=== PATIENT | male | born 1950 | race African-American/Black ===

== ENCOUNTER 2017-09-22 09:19 | Inpatient (IN) | payer MEDICARE ==
[2017-09-22 09:52] LABS: Mean Platelet Volume 6.3 fL (7.4-10.4); Red Blood Cell (RBC) Count 4.36 mill/uL (4.70-6.10); White Blood Cell (WBC) Count 16.3 thou/uL (4.8-10.8)
[2017-09-22] MEDS ORDERED: ISOVUE-370 76%-LOCM 1 ML ONE (10:07)
[2017-09-22] MEDS ORDERED: Azithromycin 500 MG VIAL ONE (10:10)
[2017-09-22 10:13] LABS: Neutrophil 85 % (42-75); Polychromasia SLIGHT = 2-3 cells (100X) (0-2/hpf)
[2017-09-22 10:16] LABS: ALT (SGPT) 28 U/L (8-55); AST (SGOT) 52 U/L (5-34); Alkaline Phosphatase 98 U/L (40-150); Anion Gap 18 mmol/L (10-20); BUN (Urea Nitrogen) 31 mg/dL (8.4-25.7); Bilirubin, Total 0.9 mg/dL (0.2-1.2); CK (CPK) 48 U/L (30-200); Calc. Creatinine Clearance 0 mL/min (70-130); Calcium 9.7 mg/dL (7.8-10.44); Carbon Dioxide 24 mmol/L (23-31); Chloride 92 mmol/L (98-107); Estimated GFR-MDRD 60; Globulin 5.4 g/dL (2.4-3.5); Protein, Total 8.5 g/dL (5.8-8.1); Troponin I Less than 0.010 ng/mL (< 0.028)
[2017-09-22 10:19] LABS: Bilirubin Negative (Negative); Blood, Urine Negative (Negative); Glucose, Urine (Dipstick) >=1000 mg/dL (Negative); Ketone, Urine Negative (Negative); Nitrite Negative (Negative); Protein, Urine (Dipstick) Negative (Neg-Trace)
--- NOTE | 2017-09-22 10:27 | RAD ---
AP CHEST: Indication: 67-year-old male with chest pain. FINDINGS: There is a lenticular shaped mass seen within the right mid chest which may reflect a loculated effus ion within the region of the right minor fissure. There is evidence of a loculated effusion seen over lying the lateral and posterolateral aspect of the right lower lobe. There are areas of airspace opac ity within the right lower lobe which may reflect atelectasis or pneumonia. The left lung demonstrates some emphysematous change but otherwise is clear. Heart size is normal neymar earing. No acute osseous abnormality is evident. IMPRESSION: 1. Right lung lenticular shaped mass may reflect loculated effusion or possibly a large lung mass les ion. Would recommend CT evaluation with IV contrast for additional characterization. 2. Moderate loculated right pleural effusion. 3. Emphysema. POS: [facility]
[2017-09-22] MEDS ORDERED: cefTRIAXone\\ROCEPHIN 2 GM, Admixture Fee 1 EACH in Sodium Chloride 0.9% 100 ML IVPB SCH (10:30)
[2017-09-22 10:40] LABS: Anion Gap 5 mmol/L (-14-95); T. Carbon Dioxide 33.8 mmol/L (1.0-85.0); pH (Venous) 7.388 (7.35-7.45); vO2 Saturation-calc 47.3 % (0.0-100.0)
[2017-09-22 11:06] LABS: Amphetamine Not Detected (NotDetected); Methadone Not Detected (NotDetected); Methamphetamine Not Detected (NotDetected)
--- NOTE | 2017-09-22 11:16 | CT ---
CT PULMONARY ANGIOGRAM WITH IV CONTRAST AND 3D POSTPROCESSING: Date: 09/22/17 HISTORY: 67-year-old male with dyspnea. FINDINGS: There is good contrast opacification of the pulmonary arterial vasculature without filling defects to suggest pulmonary embolism. The thoracic aorta is well opacified without aneurysm or dissection. The re are a few enlarged mediastinal lymph nodes, the largest measuring about 12.0 mm. There is a modera te sized right pleural effusion with associated loculations. Adjacent atelectatic changes are present . No pericardial effusion or left-sided pleural effusion is seen. There is a 7.0 mm perifissural nodu le along the right minor fissure. The left lung is clear. There are degenerative changes in the spine . IMPRESSION: 1. No CT evidence of pulmonary embolism. 2. Right pleural effusion. POS: [facility]
[2017-09-22] MEDS ORDERED: Insulin Regular 300 UNITS/3 ML VIAL ONE (11:35)
[2017-09-22] MEDS ORDERED: D5 1/2 NS w/20 mEq KCL 1,000 ML IV PRN (12:34)
[2017-09-22] MEDS ORDERED: Sodium Chloride 0.9% 1,000 ML IV PRN ×4 (12:34)
[2017-09-22] MEDS ORDERED: Dextrose 5 %-0.45 % NaCl 1,000 ML IV PRN (12:34)
[2017-09-22] MEDS ORDERED: Ondansetron ODT 4 MG TAB PO PRN (12:34)
[2017-09-22] MEDS ORDERED: Dextrose 50% Abboject 50 ML SYRINGE SLOW IVP PRN ×2 (12:34→13:09)
[2017-09-22] MEDS ORDERED: NS 0.9% w/ 20 MEQ KCL 1,000 ML IV PRN ×2 (12:34)
[2017-09-22] MEDS ORDERED: Dextrose 5% in Water 1,000 ML IV PRN ×2 (12:34→13:09)
[2017-09-22] MEDS ORDERED: CCU Electrolyte Replacement 1 EACH IVPB SCH (12:34)
[2017-09-22] MEDS ORDERED: Hydrochlorothiazide 25 MG TAB PO SCH (12:34)
[2017-09-22 13:15] LABS: Hemoglobin A1c 12.5 % (4.0-6.0)
[2017-09-22] MEDS ORDERED: CCU ELECTROLYTE REPLACEMENT PROTOCOL FS PRN (13:19)
[2017-09-22] MEDS ORDERED: Potassium Chloride 20 MEQ TAB PO PRN (13:19)
[2017-09-22] MEDS ORDERED: Magnesium Oxide 400 MG TAB PO PRN ×2 (13:19)
[2017-09-22] MEDS ORDERED: Potassium Chloride 40 MEQ in Sodium Chloride 0.9% 250 ML 250 ML IVPB PRN (13:19)
[2017-09-22] MEDS ORDERED: Potassium Phosphate 9 MMOL in Sodium Chloride 0.9% 100 ML IVPB PRN (13:19)
[2017-09-22] MEDS ORDERED: Potassium Chloride 40 MEQ in Premix Bag 1 BAG IVPB PRN (13:19)
[2017-09-22] MEDS ORDERED: Magnesium 2 GM/NS 0.9% 100 ML 2 GM in Premix Bag 1 BAG IVPB PRN (13:19)
[2017-09-22] MEDS ORDERED: Potassium Phosphate 15 MMOL in Sodium Chloride 0.9% 250 ML 250 ML IV PRN (13:19)
[2017-09-22] MEDS ORDERED: Potassium Phosphate 12 MMOL in Sodium Chloride 0.9% 250 ML 250 ML IV PRN (13:19)
[2017-09-22 13:30] LABS: Anion Gap 12 mmol/L (10-20); BUN (Urea Nitrogen) 27 mg/dL (8.4-25.7); Calc. Creatinine Clearance 0 mL/min (70-130); Calcium 8.9 mg/dL (7.8-10.44); Carbon Dioxide 26 mmol/L (23-31); Chloride 101 mmol/L (98-107); Estimated GFR-MDRD Greater than 90; Magnesium 2.5 mg/dL (1.6-2.6); Phosphorus 2.4 mg/dL (2.3-4.7)
--- NOTE | 2017-09-22 13:30 | CON ---
DATE OF CONSULTATION: 09/22/2017 CONSULTING PHYSICIAN: [facility] REASON FOR CONSULTATION: Pleural effusion. HISTORY OF PRESENT ILLNESS: Mr. Negron is a 67-year-old male who came to the emerge ncy room with a 1 week history of shortness of breath and right-sided chest pain. He has been having intermittent fever and chills. PAST MEDICAL HISTORY: 1. Diabetes mellitus. 2. Hypertension. PAST SURGICAL HISTORY: None. PSYCHIATRIC HISTORY: Negative. SOCIAL HISTORY: He quit smoking back in 2001. He drinks more than 5 drinks per day, usually beer. MEDICATIONS PRIOR TO ADMISSION: He was taking metformin and some other medication which he cannot gi ve me the name of right now. ALLERGIES: None listed. REVIEW OF SYSTEMS: Denies hematemesis, melena, hematochezia, hemoptysis, paresthesias, weakness or n umbness. PHYSICAL EXAMINATION: VITAL SIGNS: Temperature 98.9, pulse 100, blood pressure 177/100, O2 saturation 96%. GENERAL: He is awake, alert, oriented, in no distress. HEENT: Pupils react. Sclerae anicteric. Oropharynx clear. NECK: No adenopathy or JVD. LUNGS: Diminished breath sounds in the right base, left side clear. CARDIAC: S1, S2 regular, without murmur. ABDOMEN: Soft, nontender, nondistended. EXTREMITIES: No clubbing, cyanosis, or edema. LABORATORY DATA: White blood cell count 16, hematocrit 42, platelet count 346. Sodium 135, potassiu m 4.5, chloride 98, CO2 24, BUN 31, creatinine 1.4, glucose was initially 539 now it is 217. Chest x-ray shows a loculated right pleural effusion extending into the fissure. ASSESSMENT: Complex multiloculated pleural effusion, likely empyema. RECOMMENDATIONS: 1. He needs antibiotics with a broader spectrum than ceftriaxone - I would recommend Zosyn. 2. Car diothoracic consultation for decortication. 3. Treat diabetes with insulin. He does not seem to be in DKA and therefore I would not recommend a n insulin drip.
[2017-09-22 13:45] LABS: Troponin I Less than 0.010 ng/mL (< 0.028)
[2017-09-22] MEDS ORDERED: hydrALAZINE 20 MG/ML VIAL ONE (14:28)
[2017-09-22] MEDS: Sodium Chloride 0.9% 1,000 ML IV SCH ×2 (16:00→23:02)
[2017-09-22 16:02] VITALS: BMI 19.3
[2017-09-22 16:42] LABS: Anion Gap 16 mmol/L (10-20); BUN (Urea Nitrogen) 21 mg/dL (8.4-25.7); Calc. Creatinine Clearance 67 mL/min (70-130); Calcium 8.8 mg/dL (7.8-10.44); Carbon Dioxide 24 mmol/L (23-31); Chloride 101 mmol/L (98-107); Estimated GFR-MDRD Greater than 90
[2017-09-22] MEDS ORDERED: Ketorolac Tromethamine 30 MG/ML VIAL IVP SCH (17:00)
[2017-09-22] MEDS: Acetaminophen 325 MG TAB PO PRN (17:21)
[2017-09-22] MEDS: Piperacillin/Tazobactam 3.375 GM in Sodium Chloride 0.9% 100 ML IVPB SCH (18:16)
--- NOTE | 2017-09-22 20:51 | HP-2 ---
CODE STATUS: Full. PRIMARY CARE PHYSICIAN: Shy chan. ATTENDING PHYSICIAN: Dr. Morton. RESIDENT: Dr. Ponce. CHIEF COMPLAINT: Side pain. HISTORY OF PRESENT ILLNESS: This is a 67-year-old male who presents with a 1 week history of right side pain and nonproductive cough. He also notes shortness of breath, fevers and chills. He also notes an 8-9 month history of weight loss and night sweats. He states he has not been on any medications over 2 years. He has really lost any primary care provider role in the distant past as well. He really has no other complaints at this time. In the ER, he was given insulin, azithromycin and ceftriaxone. PAST MEDICAL HISTORY: Significant for; 1. Diabetes mellitus type 2. 2. Hypertension. 3. Hyperlipidemia. PAST SURGICAL HISTORY: None. ALLERGIES: None. MEDICATIONS: None. FAMILY HISTORY: Noncontributory. SOCIAL HISTORY: Tobacco; he does have a [id number] smoking history, he quit in 2001. He still abuses dipping tobacco currently. Alcohol; he used to drink at least 3 beers a day and he quit 4 days ago. Drugs; he did admit to cocaine use. REVIEW OF SYSTEMS: GENERAL: He admits to fevers, chills, weight loss and night sweats. EYES: He denied any vision changes or eye pain. ENT: Denies nasal congestion, rhinorrhea or sore throat. RESPIRATORY: He admits to cough. Denies any congestion. He does admit to shortness of breath. CARDIOVASCULAR: Denies chest pain, palpitations or edema. GASTROINTESTINAL: Denies nausea, vomiting, diarrhea, constipation, abdominal pain or GI bleeding, but he does admit to early satiety. GENITOURINARY: He denies incontinence or dysuria. SKIN: He denies rashes, lesions, jaundice or itching. MUSCULOSKELETAL: Denies pain, tenderness, stiffness, swelling or arthritis. NEUROLOGIC: Denies weakness, numbness, syncope or seizures. PSYCHIATRIC: Denies anxiety or depression. PHYSICAL EXAMINATION: VITAL SIGNS: Blood pressure is 162/92, pulse is 86, respirations are 20, temperature max is 98.9, pulse ox 95% on room air and current weight is 63.5 kilos. GENERAL: He is alert and oriented x4. He is appropriately interactive. EYES: PERRLA. Conjunctivae within normal limits. ENT: Tympanic membranes are pearly arnett without bulging or erythema. Nasal mucosa and oropharynx are within normal limits. He does have poor dentition on exam. NECK: Supple, without lymphadenopathy or thyromegaly. CARDIOVASCULAR: Regular rate and rhythm. No murmurs, no gallops. Radial and pedal pulses are equal bilaterally. RESPIRATORY: Normal effort, no retractions. He has decreased breath sounds on his right middle lobe. SKIN: Warm and dry. No cyanosis, no lesions. ABDOMEN: Soft and nontender to palpation. Bowel sounds are present x4. No mass or distention. EXTREMITIES: No clubbing, cyanosis or edema. MUSCULOSKELETAL: Structure, tone, muscle strength and range of motion are within normal limits. NEUROLOGIC: No focal neurologic deficits. Sensation within normal limits. Cranial nerves II-XII are grossly intact. GCS of 15. PSYCHIATRIC: Appropriate. LABORATORY DATA: He had a white blood cell count of 16.3, platelet count of 346 , hemoglobin 13.5, hematocrit 42.0, neutrophils 85%. He had a sodium of 129, corrected to 136. Potassium 4.5, chloride 92, bicarbonate 24, BUN 31, creatinine 1.42, glucose 500, calcium 9.7, total protein 8.5, bilirubin 3.1, AST 52, ALT 28, total bilirubin 0.9 and alkaline phosphatase 98. His beta hydroxybutyrate was 0.44. He had an ABG that showed a pH of 7.39. His urine drug screen was positive for cocaine. He had an anion gap of 20 and his urinalysis showed glucose of greater than 1000. IMAGING DATA: Chest x-ray showed right lung lenticular mass, loculated effusion with large lung mass and emphysema. His CT angiogram of the chest showed no PE, but did show a right pleural effusion, so we are working with him. ASSESSMENT AND PLAN: A 67-year-old male with: 1. Suspected pneumonia with possible empyema versus a mass. We are suspecting tuberculosis on this individual because of his history. We are going to order a Quantiferon Gold, put him on tuberculosis precautions. We are going to rule out cancer. Continue his antibiotics and get a pulmonary consult with Dr. Lyon. We appreciate his recommendations at this time. 2. Hyperglycemic hyperosmolar syndrome. We will give him the diabetic ketoacidosis protocol with insulin, make him n.p.o., get repeat BMPs and IV fluids and monitor status there. 3. Diabetes mellitus type 2, uncontrolled. We will give him insulin, Accu- Cheks and check hemoglobin A1c. 4. Acute kidney injury versus chronic kidney disease. We will repeat his BMP and give him IV fluids. 5. Hypertension is uncontrolled. We are going to initiate blood pressure control with HCTZ. 6. Hyperlipidemia. We are going to get a fasting lipid panel. 7. Weight loss, likely secondary to #1. We are going to check an HIV, RPR and a hepatitis panel. Disposition and length of hospital stay will be IMCU in 2 midnights. Symptomatic medication will be provided. History and physical exam as well as management has been discussed with Dr. Morton. Patient seen with Dr. Ponce. I agree with ferreira portions of H&P, Plan above. A written note is in the chart. 67 year old with lung infiltrate and large pleural effusion. Cancer, empyema, TB possibilities. We will ask pulmonary to see. He needs a tap. Rule out HIV. RALF Morton MD [facility]
[2017-09-22] MEDS ORDERED: FLU VACC TS2017-18 (>65YR) 0.5 ML SYRINGE IM ONE (21:00)
--- NOTE | 2017-09-22 23:50 | CON ---
DATE OF CONSULTATION: 09/22/2017 HISTORY OF PRESENT ILLNESS: This is a 67-year-old gentleman who relates a 2-week history of right-si ded chest pain and productive cough with no fever. He does admit to night sweats, but this has been going on for much longer. He has diabetes mellitus, does not take his medications as evidenced by sd s A1c of 12.1 and he states that he cannot afford the medicines. He was admitted after a CT scan [facility] showed the above findings and a white count of 16,000. He was seen by Dr. Lyon who is recommen ded intervention. PAST MEDICAL HISTORY: Otherwise includes hypertension, diabetes mellitus, polysubstance abuse, alcoh ol use included. PHYSICAL EXAMINATION: GENERAL: He is alert, disgruntled gentleman at this time because it is 7 p.m. and he states he has be en here since noon and has not had anything to eat. NECK: No carotid bruits. LUNGS: Clear to auscultation anteriorly. CARDIAC: Regular rate and rhythm. No murmurs. ABDOMEN: Soft, scaphoid, nontender. No aneurysm. EXTREMITIES: He has palpable femoral and pedal pulses bilaterally with no peripheral edema. Plan at this time is right thoracoscopy/thoracotomy for loculated empyema. Informed consent has been obtained.
[2017-09-23] MEDS: Piperacillin/Tazobactam 3.375 GM in Sodium Chloride 0.9% 100 ML IVPB SCH ×4 (00:16→22:26)
[2017-09-23] MEDS ORDERED: Dextrose 50% Abboject 50 ML SYRINGE SLOW IVP PRN (01:00)
[2017-09-23] MEDS ORDERED: HumaLOG 300 UNITS/3 ML VIAL SC SCH (01:00)
[2017-09-23] MEDS ORDERED: Dextrose 5% in Water 1,000 ML IV PRN (01:00)
[2017-09-23 05:47] LABS: #Eosinphils 0.1 thou/uL (0.0-0.7); #Lymphocytes 0.6 thou/uL (1.20-3.40); #Monocytes 1.1 thou/uL (0.11-0.59); #Neutrophils 9.4 thou/uL (1.40-6.50); %Basophils 0.1 % (0.0-1.0); %Eosinophils 0.9 % (0.0-10.0); %Lymphocytes 5.7 % (21.0-51.0); %Monocytes 9.7 % (0.0-10.0); Hematocrit 39.1 % (42.0-52.0); Mean Platelet Volume 6.1 fL (7.4-10.4); Red Blood Cell (RBC) Count 4.05 mill/uL (4.70-6.10); White Blood Cell (WBC) Count 11.2 thou/uL (4.8-10.8)
[2017-09-23 06:03] LABS: Anion Gap 7 mmol/L (10-20); BUN (Urea Nitrogen) 26 mg/dL (8.4-25.7); Calc. Creatinine Clearance 58 mL/min (70-130); Calcium 8.5 mg/dL (7.8-10.44); Carbon Dioxide 29 mmol/L (23-31); Chloride 102 mmol/L (98-107); Cholesterol 89 mg/dl (< 200 Desired); Estimated GFR-MDRD Greater than 90; LDL Cholesterol, Calculated 44 mg/dL
[2017-09-23] MEDS: hydrALAZINE 20 MG/ML VIAL SLOW IVP PRN (06:28)
--- NOTE | 2017-09-23 09:08 | PRG ---
DATE OF SERVICE: 09/23/2017 SUBJECTIVE: The patient is basically not wanting to talk about anything today. OBJECTIVE: VITAL SIGNS: On exam, his temperature is 99.8 after T-max of 101.8, pulse 99, blood pressure 190/83, O2 sat 96%. HEENT: Unremarkable. NECK: No JVD. LUNGS: Diminished breath sounds at right base, left side clear. CARDIAC: S1 and S2 regular. ABDOMEN: Soft. EXTREMITIES: No edema. LABORATORY DATA: White blood cell count 11.2, hematocrit 39.1, platelet count 299. Sodium 133, pota ssium 4.5, chloride 102, CO2 29, BUN 26, creatinine 0.9, glucose 195. ASSESSMENT: 1. Right-sided empyema. 2. Diabetes mellitus -- noncompliant with medications. PLAN: Thorascopic decortication today. Continue IV Zosyn.
--- NOTE | 2017-09-23 09:18 | PDOC.FM ---
- Subjective Subjective: CC: tired of people talking to me HPI: Patient was disgruntled that he continues to have staff re-evaluate him. Did not want to talk about current condition but is in agreement with plan for thoracoscopy. - Objective MAR Reviewed: Yes Vital Signs & Weight: Vital Signs (12 hours) Temp Pulse Resp BP BP Pulse Ox 09/23/17 08:00 101.1 F H 113 H 20 133/63 95 09/23/17 06:28 99 190/83 H 09/23/17 06:10 99.8 F H 99 20 190/83 H 190/83 H 96 09/23/17 00:00 98.1 F 84 18 144/80 H 144/80 H 97 Weight Weight 55.792 kg I&O: 09/22/17 09/23/17 09/24/17 06:59 06:59 06:59 Intake Total 2020 Output Total 500 Balance 1520 Result Diagrams: 09/23/17 05:05 09/23/17 05:05 <Arron Burgos W - Last Filed: 09/23/17 10:29> - Objective Vital Signs & Weight: Vital Signs (12 hours) Temp Pulse Resp BP BP Pulse Ox 09/23/17 08:00 101.1 F H 113 H 20 133/63 95 09/23/17 06:28 99 190/83 H 09/23/17 06:10 99.8 F H 99 20 190/83 H 190/83 H 96 09/23/17 00:00 98.1 F 84 18 144/80 H 144/80 H 97 Weight Weight 55.792 kg I&O: 09/22/17 09/23/17 09/24/17 06:59 06:59 06:59 Intake Total 2020 Output Total 500 Balance 1520 Result Diagrams: 09/23/17 05:05 09/23/17 05:05 <Salo Bowser - Last Filed: 09/23/17 10:59> Phys Exam - Physical Examination Constitutional: NAD HEENT: moist MMs Respiratory: no wheezing, clear to auscultation bilateral decreased breath sounds RLL Cardiovascular: RRR, no significant murmur Gastrointestinal: soft, non-tender Psychiatric: normal affect, A&O x 3 <Arron Burgos - Last Filed: 09/23/17 10:29> Dx/Plan (1) Empyema Code(s): J86.9 - PYOTHORAX WITHOUT FISTULA Status: Acute Plan: Zosyn day 2. CV surgery consulted. Plan for thoracoscpy today. - continue zosyn - Tramadol and morphine added for pain management (2) CAP (community acquired pneumonia) Code(s): J18.9 - PNEUMONIA, UNSPECIFIED ORGANISM Status: Acute QualifierTitle: Laterality: right Lung location: middle lobe of lung Qualified Code(s): J18.1 - Lobar pneumonia, unspecified organism Plan: Zosyn day 2 febrile overnight. continue abx. (3) HTN (hypertension) Code(s): I10 - ESSENTIAL (PRIMARY) HYPERTENSION Status: Acute QualifierTitle: Hypertension type: essential hypertension Qualified Code( s): I10 - Essential (primary) hypertension Plan: started amlodipine 5 mg and lisinopril 10 mg - will also start on ASA once cleared by CV surgery (4) Diabetes mellitus Code(s): E11.9 - TYPE 2 DIABETES MELLITUS WITHOUT COMPLICATIONS Status: Acute QualifierTitle: Diabetes mellitus type: type 2 Diabetes mellitus complication status: without complication Diabetes mellitus bike mechanic insulin use: without bike mechanic use Qualified Code(s): E11.9 - Type 2 diabetes mellitus without complications Plan: A1c 12.1%. - after procedure, will start oral medications, likely glyburide and then metformin at time of discharge - would likely need insulin given A1c but compliance will be a problem going forward. (5) Polysubstance abuse Code(s): F19.10 - OTHER PSYCHOACTIVE SUBSTANCE ABUSE, UNCOMPLICATED Status: Acute <Arron Burgos - Last Filed: 09/23/17 10:29> Attending Addendum - Attending Addendum I personally evaluated the patient and discussed the management with Dr. Burgos. I agree with the History, Examination, Assessment and Plan documented above with any addition or exceptions noted below. <Salo Bowser - Last Filed: 09/23/17 10:59>
[2017-09-23] MEDS ORDERED: Morphine 4 MG/ML VIAL SLOW IVP PRN (09:19)
[2017-09-23] MEDS ORDERED: traMADol HCl 50 MG TAB PO PRN (09:19)
[2017-09-23] MEDS: Acetaminophen 325 MG TAB PO PRN (09:36)
[2017-09-23] MEDS: Amlodipine 5 MG TAB PO SCH (13:36)
[2017-09-23] MEDS: Sodium Chloride 0.9% 1,000 ML IV SCH ×2 (13:37→22:26)
[2017-09-23] MEDS: Lisinopril 10 MG TAB PO SCH (13:37)
--- NOTE | 2017-09-23 14:39 | PQF ---
CLINICAL DOCUMENTATION IMPROVEMENT CLARIFICATION FORM: ICD-10 Updated PLEASE DO AN ADDENDUM TO THE PROGRESS NOTE WITH ANY DOCUMENTATION UPDATES OR ADDITIONS AND CARRY THROUGH TO DC SUMMARY. THANK YOU. Date: 09/23/17 ATTN: DR. BECKHAM Please exercise your independent, professional judgment in responding to the clarification form. Clinical indicators are provided on the bottom of this form for your review Please check appropriate box(s): [ x ] Protein Calorie Malnutrition: [ x ] Mild [ ] Moderate [ ] Severe [ ] Other Malnutrition (please specify) __ [ ] Underweight without malnutrition [ ] Cachexia [ ] Other diagnosis [ ] Unable to determine In addition, please specify: Present on Admission (POA): [ ] Yes [ ] No [ x ] Unable to determine CLINICAL INDICATORS - SIGNS / SYMPTOMS / LABS DIETARY NOTE 09/23: "THE PATIENT WAS TRIGGERED FOR WT LOSS AND POOR PO INTAKE." "KCAL AND PROTEIN NEEDS NOT MET" ALBUMIN 3.1 BMI 19.3 RISKS: H/O ALCOHOL AND DRUG USE POSSIBLE TB TREATMENT: DIETARY CONSULT RECOMMENDATIONS FOR NUTRITIONAL SUPPLEMENTS PER DIETARY NOTE 09/23 [employer] Geriatric Physical Therapist [employer] Winform Viewer (This form is maintained as a part of the permanent medical record) 2014 [employer]. All Rights Reserved ROBIN [email or web address] Office: [phone] [facility]
[2017-09-23] MEDS ORDERED: Fentanyl 250 MCG/5 ML VIAL ONE (14:58)
[2017-09-23] MEDS ORDERED: Lidocaine 1% PF 5 ML VIAL ONE (16:13)
[2017-09-23] MEDS ORDERED: Propofol 200 MG/20 ML VIAL ONE (16:13)
[2017-09-23] MEDS ORDERED: Dexamethasone 20 MG/5 ML VIAL ONE (16:13)
[2017-09-23] MEDS ORDERED: Ondansetron HCl/PF 4 MG/2 ML Vial ONE (16:13)
[2017-09-23] MEDS ORDERED: Labetalol HCl 100 MG/20 ML VIAL ONE (16:13)
[2017-09-23] MEDS ORDERED: PHENYLEPHRINE-NS 100 MCG/ML 10 ML SYRINGE ONE (16:13)
[2017-09-23] MEDS ORDERED: Glycopyrrolate 0.2 MG/ML 5 ML SYRINGE ONE (16:13)
[2017-09-23] MEDS ORDERED: Fentanyl 100 MCG/2 ML VIAL ONE (17:34)
--- NOTE | 2017-09-23 18:11 | OP ---
PREOPERATIVE DIAGNOSIS: Empyema, right chest. POSTOPERATIVE DIAGNOSIS: Empyema, right chest. PROCEDURE: Right thoracoscopy with total along decortication. SURGEON: Luigi Fenton M.D. OPERATIONS RESEARCH ANALYST: None. ANESTHESIA: General. ESTIMATED BLOOD LOSS: Minimal. FINDINGS: About 1000 mL of thick yellow fluid and necrotic debris. PROCEDURE IN DETAIL: After adequate anesthesia had been obtained with a double lumen tube and the pa tient was placed in the left lateral decubitus position, prepping and draping was carried out. A 10 mm trocar was then inserted after hemostat had been used into the chest and cultures were obtained. Scope was inserted and a second incision was made for instrumentation. Loculations were all broken d own between the diaphragm lung and fissure. After irrigation with about 5 liters of irrigation, effl uent had cleared. Chest tubes were then placed and the wounds were closed. The patient is to be james en to the recovery room.
[2017-09-23] MEDS ORDERED: HYDROcodone/Acetaminophen 5/325 mg Tablet PO PRN (22:32)
[2017-09-23] MEDS ORDERED: Sodium Chloride 0.9% 1,000 ML IV SCH (22:32)
[2017-09-23] MEDS ORDERED: Ondansetron HCl/PF 4 MG/2 ML Vial IVP PRN (22:32)
[2017-09-23] MEDS ORDERED: Morphine 10 MG/ML CARPUJECT SLOW IVP PRN (22:32)
--- NOTE | 2017-09-23 23:52 | RAD ---
FRONTAL RADIOGRAPH CHEST 09/23/17 COMPARISON: 09/22/17 HISTORY: Evaluate chest following thoracotomy. FINDINGS: Lobulated areas of pleural density identified on the prior examination are improved following thoraco hemanth. There are two chest tubes overlying the right hemithorax. There is hazy increased density in th e right lung base suggesting air space disease within right middle and right lower lobe. Left lung is clear. IMPRESSION: Improved pleural and parenchymal opacity within the right lung base. Two right sided chest tubes are present. Followup to resolution advised. POS: [facility]
[2017-09-24] MEDS: Piperacillin/Tazobactam 3.375 GM in Sodium Chloride 0.9% 100 ML IVPB SCH ×4 (00:21→18:52)
[2017-09-24] MEDS: Insulin Regular 300 UNITS/3 ML VIAL SC PRN ×5 (00:21→22:15)
[2017-09-24 06:07] LABS: #Lymphocytes 0.4 thou/uL (1.20-3.40); #Monocytes 0.8 thou/uL (0.11-0.59); #Neutrophils 7.2 thou/uL (1.40-6.50); %Basophils 0.1 % (0.0-1.0); %Lymphocytes 4.7 % (21.0-51.0); %Monocytes 9.6 % (0.0-10.0); Hematocrit 33.8 % (42.0-52.0); Mean Platelet Volume 6.3 fL (7.4-10.4); White Blood Cell (WBC) Count 8.4 thou/uL (4.8-10.8)
[2017-09-24 07:06] LABS: Anion Gap 12 mmol/L (10-20); BUN (Urea Nitrogen) 17 mg/dL (8.4-25.7); Calc. Creatinine Clearance 64 mL/min (70-130); Calcium 7.9 mg/dL (7.8-10.44); Carbon Dioxide 21 mmol/L (23-31); Chloride 103 mmol/L (98-107); Estimated GFR-MDRD Greater than 90
--- NOTE | 2017-09-24 07:49 | PDOC.FM ---
- Subjective Subjective: CC: feeling better HPI: States right chest pain feeling better. hungry and wants to eat. discussed starting insulin and he is agreeable. - Objective MAR Reviewed: Yes Vital Signs & Weight: Vital Signs (12 hours) Temp Pulse Resp BP Pulse Ox 09/24/17 07:13 98.8 F 88 16 130/61 100 09/24/17 04:00 98.6 F 86 18 106/65 100 09/24/17 00:00 99.5 F 102 H 18 114/53 L 100 Weight Admit Weight 55.792 kg Weight 55.792 kg I&O: 09/23/17 09/24/17 09/25/17 06:59 06:59 06:59 Intake Total 2019 1800 Output Total 500 300 925 Balance 1520 -300 875 Result Diagrams: 09/24/17 05:30 09/24/17 05:30 Radiology Reviewed by me: Yes (improved effusion. ) <Arron Burgos W - Last Filed: 09/24/17 07:47> - Objective Vital Signs & Weight: Vital Signs (12 hours) Temp Pulse Resp BP BP Pulse Ox 09/24/17 10:24 88 190/83 H 09/24/17 08:00 98.8 F 88 16 98 09/24/17 07:13 98.8 F 88 16 130/61 100 09/24/17 04:00 98.6 F 86 18 106/65 100 09/24/17 00:00 99.5 F 102 H 18 114/53 L 100 Weight Admit Weight 123 lb Weight 123 lb I&O: 09/23/17 09/24/17 09/25/17 06:59 06:59 06:59 Intake Total 2019 1800 Output Total 500 300 925 Balance 1520 -300 875 Result Diagrams: 09/24/17 05:30 09/24/17 05:30 <Tyler Morton - Last Filed: 09/24/17 11:10> Phys Exam - Physical Examination Constitutional: NAD HEENT: sclera anicteric, TM's clear Respiratory: no wheezing, clear to auscultation bilateral Cardiovascular: RRR, no significant murmur chest tube draining serosanganous fluid 400 mL in canister Gastrointestinal: soft, non-tender Neurological: non-focal, moves all 4 limbs Psychiatric: normal affect, A&O x 3 <Arron Burgos - Last Filed: 09/24/17 07:47> Dx/Plan (1) Empyema Code(s): J86.9 - PYOTHORAX WITHOUT FISTULA Status: Acute Plan: Zosyn day 3. CV surgery consulted. POD1 thoracospcy - continue zosyn - Tramadol and morphine added for pain management - management per CV surgery (2) CAP (community acquired pneumonia) Code(s): J18.9 - PNEUMONIA, UNSPECIFIED ORGANISM Status: Acute QualifierTitle: Laterality: right Lung location: middle lobe of lung Qualified Code(s): J18.1 - Lobar pneumonia, unspecified organism Plan: Zosyn day 3 afebrile overnight. continue abx. (3) HTN (hypertension) Code(s): I10 - ESSENTIAL (PRIMARY) HYPERTENSION Status: Acute QualifierTitle: Hypertension type: essential hypertension Qualified Code( s): I10 - Essential (primary) hypertension Plan: improved with amlodipine 5 mg and lisinopril 10 mg - will also start on ASA once cleared by CV surgery (4) Diabetes mellitus Code(s): E11.9 - TYPE 2 DIABETES MELLITUS WITHOUT COMPLICATIONS Status: Acute QualifierTitle: Diabetes mellitus type: type 2 Diabetes mellitus complication status: without complication Diabetes mellitus long term care social worker insulin use: without fdc use Qualified Code(s): E11.9 - Type 2 diabetes mellitus without complications Plan: A1c 12.1%. - required 24 of SSI overnight. discussed need for insulin therapy with patient. He is agreeable to starting insulin. will start levemir 15 units daily. - restart metformin at time of discharge. (5) Polysubstance abuse Code(s): F19.10 - OTHER PSYCHOACTIVE SUBSTANCE ABUSE, UNCOMPLICATED Status: Acute <Arron Burgos - Last Filed: 09/24/17 07:47> Attending Addendum - Attending Addendum I personally evaluated the patient and discussed the management with Dr. Burgos I agree with the History, Examination, Assessment and Plan documented above. <Tyler Morton - Last Filed: 09/24/17 11:10>
[2017-09-24] MEDS ORDERED: Insulin Detemir 100 UNITS/ML 15 UNITS in Pre-Filled Syringe 1 EACH SC SCH (09:00)
--- NOTE | 2017-09-24 09:37 | RAD ---
CHEST 1 VIEW: Date: 09/24/17 HISTORY: Status post thoracostomy. COMPARISON: 09/23/17. FINDINGS: Stable cardiac silhouette and stable aeration of left lung. Stable right-sided chest tubes. Persisten t opacification right hemithorax. No obvious large right-sided pneumothorax. IMPRESSION: No significant change. POS: [facility]
[2017-09-24] MEDS: Lisinopril 10 MG TAB PO SCH (10:24)
[2017-09-24] MEDS: Amlodipine 5 MG TAB PO SCH (10:24)
[2017-09-24] MEDS: HYDROcodone/Acetaminophen 5/325 mg Tablet PO PRN ×2 (10:29→19:34)
[2017-09-24 13:11] LABS: Hep C PCR-Quant 1550000 IU/mL (.)
--- NOTE | 2017-09-24 15:40 | EKG ---
Test Reason : Blood Pressure : / mmHG Vent. Rate : 101 BPM Atrial Rate : 101 BPM P-R Int : 126 ms QRS Dur : 078 ms QT Int : 334 ms P-R-T Axes : 074 070 067 degrees QTc Int : 433 ms Sinus tachycardia Moderate voltage criteria for LVH, may be normal variant Borderline ECG Confirmed by OMAR ASHLEY D.O. ([id number]), development editor CHRIS CAVANAUGH ([id number]) on 09/24/2017 3:40:13 PM Referred By: Confirmed By:OMAR ASHLEY D.O.
--- NOTE | 2017-09-24 22:00 | PRG ---
DATE OF SERVICE: 09/24/2017 SERVICE: Pulmonary Medicine. INTERVAL HISTORY: The patient is doing fantastic from a respiratory standpoint. He denies any current fevers, chills, nausea, vomiting or diarrhea. He is breathing comfortably. His pain is under better control. His IV is infiltrating which is causing him significant distress. I notified his nurse. Otherwise, there has been no interval change in his condition. PHYSICAL EXAMINATION: VITAL SIGNS: Afebrile, pulse 82, blood pressure 114/69, respirations 18, saturation 96% on room air. GENERAL: The patient is awake, alert, no apparent distress. LUNGS: Excellent air entry. There are crackles on the right, but no other adventitious sounds. No prolonged expiratory phase. Left lung is clear to auscultation. HEART: Normal rate, regular. ABDOMEN: Soft, nontender, nondistended, bowel sounds positive. MUSCULOSKELETAL: No cyanosis or clubbing. No pitting in the bilateral lower extremities. NEUROLOGIC: Grossly nonfocal. LABORATORY DATA: WBC 8.4, hemoglobin 10.9, platelets 280,000. Neutrophil count is stable at 85%. Basic metabolic profile is unremarkable with a bicarbonate of 21, which is gently down trending. Sodium 131. Blood sugars ranged from 331 to 112. Cocaine is positive. Beta hydroxybutyrate acid is really quite low. Plasma alcohol level is 10. Hepatitis C antibodies are positive. HIV 1 and 2 is non reactive. Blood cultures x2 and pleural fluid studies are negative to date. IMAGING: Chest x-ray demonstrates no significant interval change. There are 2 thoracostomy drains on the right with chronic midlung zone changes. The left lung is perfectly clean with no acute cardiopulmonary abnormality. ASSESSMENT: 1. Acute hypoxic respiratory failure. 2. Empyema on the right. 3. Type 2 diabetes mellitus, noncompliant with medications. PLAN: The patient will continue routine postop care. Once the chest tube starts putting out less fluid, this will likely be discontinued, certainly at the discretion of CT surgery. Continue antibiotic coverage. Once he clears his inflammatory profile, it would be reasonable to switch over to Augmentin and treat for a total duration per Dr. Lyon's recommendations. [facility]OSPITALMinnie
[2017-09-25] MEDS: Piperacillin/Tazobactam 3.375 GM in Sodium Chloride 0.9% 100 ML IVPB SCH ×4 (00:14→18:18)
[2017-09-25] MEDS: Insulin Regular 300 UNITS/3 ML VIAL SC PRN (06:29)
--- NOTE | 2017-09-25 07:13 | PDOC.FM ---
- Subjective Subjective: CC: "chest tube hurts" HPI: Stated he wants chest tube removed. Explained while he is still having output, needs chest tube to prevent infection from reoccurring. Discussed Hep C status and importance of outpatient follow up. - Objective MAR Reviewed: Yes Vital Signs & Weight: Vital Signs (12 hours) Temp Pulse Resp BP Pulse Ox 09/25/17 01:01 98.3 F 73 18 170/96 H 95 09/24/17 20:00 98.3 F 80 16 108/65 96 Weight Admit Weight 55.792 kg Weight 55.792 kg I&O: 09/24/17 09/25/17 09/26/17 06:59 06:59 06:59 Intake Total 2550 Output Total 300 1525 Balance -300 1025 Result Diagrams: 09/24/17 05:30 09/24/17 05:30 <Arron Burgos - Last Filed: 09/25/17 08:02> - Objective Vital Signs & Weight: Vital Signs (12 hours) Temp Pulse Resp BP Pulse Ox 09/25/17 07:45 98.5 F 87 18 148/85 H 96 09/25/17 04:00 98.3 F 83 17 135/74 97 09/25/17 01:01 98.3 F 73 18 170/96 H 95 Weight Admit Weight 123 lb Weight 123 lb I&O: 09/24/17 09/25/17 09/26/17 06:59 06:59 06:59 Intake Total 2550 Output Total 300 1615 Balance -300 935 Result Diagrams: 09/24/17 05:30 09/24/17 05:30 <Tyler Morton - Last Filed: 09/25/17 10:06> Phys Exam - Physical Examination Constitutional: NAD HEENT: moist MMs, sclera anicteric Respiratory: no wheezing, clear to auscultation bilateral chest tube drained 300 mL overnight. Cardiovascular: RRR, no significant murmur Musculoskeletal: no edema Neurological: non-focal, moves all 4 limbs Psychiatric: normal affect, A&O x 3 <Arron Burgos - Last Filed: 09/25/17 08:02> Dx/Plan (1) Empyema Code(s): J86.9 - PYOTHORAX WITHOUT FISTULA Status: Acute Plan: Zosyn day 4. CV surgery consulted. POD2 thoracospcy - continue zosyn - Tramadol and morphine added for pain management - management per CV surgery (2) CAP (community acquired pneumonia) Code(s): J18.9 - PNEUMONIA, UNSPECIFIED ORGANISM Status: Acute QualifierTitle: Laterality: right Lung location: middle lobe of lung Qualified Code(s): J18.1 - Lobar pneumonia, unspecified organism Plan: Zosyn day 4 afebrile overnight. continue abx. (3) HTN (hypertension) Code(s): I10 - ESSENTIAL (PRIMARY) HYPERTENSION Status: Acute QualifierTitle: Hypertension type: essential hypertension Qualified Code( s): I10 - Essential (primary) hypertension Plan: improved with amlodipine 5 mg and lisinopril 10 mg but remains labile. - will also start on ASA once cleared by CV surgery - will monitor overnight and adjust as needed. consider increasing lisinopril to 20 mg daily. (4) Diabetes mellitus Code(s): E11.9 - TYPE 2 DIABETES MELLITUS WITHOUT COMPLICATIONS Status: Acute QualifierTitle: Diabetes mellitus type: type 2 Diabetes mellitus complication status: without complication Diabetes mellitus jail insulin use: without jail use Qualified Code(s): E11.9 - Type 2 diabetes mellitus without complications Plan: A1c 12.1%. - Increase Levemir to 25 U daily. continue mild SSI. - restart metformin at time of discharge. (5) Hepatitis C virus infection Code(s): B19.20 - UNSPECIFIED VIRAL HEPATITIS C WITHOUT HEPATIC COMA Status: Acute QualifierTitle: Viral hepatitis chronicity: chronic Hepatic coma status: without hepatic coma Qualified Code(s): B18.2 - Chronic viral hepatitis C Plan: viral load positive. will need outpatient evaluation and treatment. (6) Polysubstance abuse Code(s): F19.10 - OTHER PSYCHOACTIVE SUBSTANCE ABUSE, UNCOMPLICATED Status: Acute <Arron Burgos - Last Filed: 09/25/17 08:02> Attending Addendum - Attending Addendum I personally evaluated the patient and discussed the management with Dr. Burgos I agree with the History, Examination, Assessment and Plan documented above with any addition or exceptions noted below. Patient is improving. Chest tube is still draining and cultures are pending. Continue current antibiotics for now awaiting culture. <Selene,Tyler E - Last Filed: 09/25/17 10:06>
[2017-09-25] MEDS: Insulin Detemir 100 UNITS/ML 25 UNITS in Pre-Filled Syringe 1 EACH SC SCH (10:04)
[2017-09-25] MEDS: Lisinopril 10 MG TAB PO SCH (10:05)
[2017-09-25] MEDS: Amlodipine 5 MG TAB PO SCH (10:05)
[2017-09-25] MEDS: Acetaminophen 325 MG TAB PO PRN (15:34)
--- NOTE | 2017-09-25 20:05 | PRG ---
DATE OF SERVICE: 09/25/2017 SERVICE: Pulmonary Medicine. INTERVAL HISTORY: The patient is doing fine from a respiratory standpoint. He is breathing comforta domenica. He denies any current fevers, chills, nausea or vomiting. He has a right-sided thoracostomy dr betancourt in place. Otherwise, there has been no interval change to his condition. PHYSICAL EXAMINATION: VITAL SIGNS: T-max 101.9, pulse 95, blood pressure 143/78, respirations 18, saturation 96% on room a ir. GENERAL: Patient is awake, alert, in no apparent distress. LUNGS: Decent air entry. There are some rhonchi and crackles on the right. No prolonged expiratory phase. HEART: Normal rate, regular. ABDOMEN: Soft, nontender, nondistended. Bowel sounds positive. MUSCULOSKELETAL: No cyanosis or clubbing. No pitting in the bilateral lower extremities. NEUROLOGIC: Grossly nonfocal. LABORATORY DATA: WBC 8.4, hemoglobin 10.9, platelets 280,000. Neutrophil count is stable at 85%. B lood sugars ranged from 88 to 224. All culture results are negative to date. ASSESSMENT: 1. Acute hypoxic respiratory failure, resolved. 2. Empyema on the right. 3. Type 2 diabetes mellitus, noncompliant with medications. PLAN: We will continue our routine postoperative care. If he fevers again, repeat culture will be c onsidered. The chest tube's output is getting a little clear. Once the output decreases, we will li matthew remove the chest tube. Dr. Lyon will resume care in the morning.
[2017-09-26] MEDS: Piperacillin/Tazobactam 3.375 GM in Sodium Chloride 0.9% 100 ML IVPB SCH ×5 (00:01→23:31)
[2017-09-26] MEDS: hydrALAZINE 20 MG/ML VIAL SLOW IVP PRN ×2 (00:12→20:31)
[2017-09-26 05:51] LABS: #Eosinphils 0.1 thou/uL (0.0-0.7); #Lymphocytes 0.8 thou/uL (1.20-3.40); #Monocytes 0.9 thou/uL (0.11-0.59); #Neutrophils 7.5 thou/uL (1.40-6.50); %Basophils 0.3 % (0.0-1.0); %Eosinophils 1.1 % (0.0-10.0); %Lymphocytes 8.6 % (21.0-51.0); %Monocytes 9.6 % (0.0-10.0); Hematocrit 36.2 % (42.0-52.0); Mean Platelet Volume 6.1 fL (7.4-10.4); Red Blood Cell (RBC) Count 3.79 mill/uL (4.70-6.10); White Blood Cell (WBC) Count 9.3 thou/uL (4.8-10.8)
[2017-09-26 06:09] LABS: Anion Gap 9 mmol/L (10-20); BUN (Urea Nitrogen) 10 mg/dL (8.4-25.7); Calc. Creatinine Clearance 75 mL/min (70-130); Calcium 8.1 mg/dL (7.8-10.44); Carbon Dioxide 28 mmol/L (23-31); Chloride 100 mmol/L (98-107); Estimated GFR-MDRD Greater than 90
[2017-09-26] MEDS: Amlodipine 5 MG TAB PO SCH (08:23)
[2017-09-26] MEDS: Insulin Detemir 100 UNITS/ML 25 UNITS in Pre-Filled Syringe 1 EACH SC SCH (08:23)
[2017-09-26] MEDS: Acetaminophen 325 MG TAB PO PRN ×2 (08:29→20:32)
--- NOTE | 2017-09-26 08:33 | PRG ---
DATE OF SERVICE: 09/26/2017 SUBJECTIVE: He feels better. His chest tube was removed this morning. PHYSICAL EXAMINATION: VITAL SIGNS: On exam, his temperature is 99.6 with a T-max of 101.9, pulse 105, respirations 15, O2 saturation 97%, and blood pressure 173/84. HEENT: Unremarkable. NECK: No JVD. CHEST: Fairly clear anteriorly. CARDIAC: S1 and S2 regular. ABDOMEN: Soft. EXTREMITIES: No edema. LABORATORY DATA: White blood cell count 9.3, hematocrit 36.2, platelet count 379. Sodium 133, potas sium 3.8, chloride 100, CO2 28, BUN 10, creatinine 0.7, and glucose 121. ASSESSMENT: 1. Right-sided empyema with sterile cultures to date. 2. Persistent fever. RECOMMENDATIONS: 1. Continue IV antibiotics. 2. Increase activity as tolerated. 3. Hopefully home in the next day or two if he does okay.
--- NOTE | 2017-09-26 09:17 | PDOC.FM ---
- Subjective Subjective: CC: "I want to go home" HPI: Patient states he does not understand why he is still here in the hospital. Explained the severity of his illness and he expressed understanding. States he is happy the chest tube was removed and has been feeling better. - Objective MAR Reviewed: Yes Vital Signs & Weight: Vital Signs (12 hours) Temp Pulse Resp BP BP Pulse Ox 09/26/17 08:23 105 H 09/26/17 08:00 99.0 F 107 H 16 170/84 H 96 09/26/17 04:15 99.6 F 105 H 15 173/84 H 97 09/26/17 00:12 99 199/94 H Weight Admit Weight 55.792 kg Weight 55.792 kg I&O: 09/25/17 09/26/17 09/27/17 06:59 06:59 06:59 Intake Total 2550 2360 Output Total 1615 2120 Balance 935 240 Result Diagrams: 09/26/17 04:59 09/26/17 04:59 <Arron Burgos - Last Filed: 09/26/17 09:16> - Objective Vital Signs & Weight: Vital Signs (12 hours) Temp Pulse Resp BP BP Pulse Ox 09/26/17 11:49 98.9 F 94 14 127/80 96 09/26/17 10:27 199/94 H 09/26/17 08:23 105 H 09/26/17 08:00 98.9 F 94 14 170/84 H 96 09/26/17 04:15 99.6 F 105 H 15 173/84 H 97 Weight Admit Weight 55.792 kg Weight 55.792 kg I&O: 09/25/17 09/26/17 09/27/17 06:59 06:59 06:59 Intake Total 2550 2360 Output Total 1615 2120 Balance 935 240 Result Diagrams: 09/26/17 04:59 09/26/17 04:59 <Mercedes Jackson - Last Filed: 09/26/17 15:26> Phys Exam - Physical Examination Constitutional: NAD HEENT: moist MMs, sclera anicteric Neck: no nodes, no JVD Respiratory: no wheezing, clear to auscultation bilateral Cardiovascular: RRR, no significant murmur Gastrointestinal: soft, non-tender Neurological: non-focal, moves all 4 limbs Psychiatric: normal affect, A&O x 3 Skin: no rash, normal turgor <Arron Burgos - Last Filed: 09/26/17 09:16> Dx/Plan (1) Empyema Code(s): J86.9 - PYOTHORAX WITHOUT FISTULA Status: Acute Plan: Zosyn day 5. CV surgery consulted. POD 3 thoracospcy - continue zosyn - [place] for pain - management per CV surgery - repeat CXR tomorrow (2) CAP (community acquired pneumonia) Code(s): J18.9 - PNEUMONIA, UNSPECIFIED ORGANISM Status: Acute QualifierTitle: Laterality: right Lung location: middle lobe of lung Qualified Code(s): J18.1 - Lobar pneumonia, unspecified organism Plan: Zosyn day 5 Fever up to 101.9 F overnight. continue abx. (3) HTN (hypertension) Code(s): I10 - ESSENTIAL (PRIMARY) HYPERTENSION Status: Acute QualifierTitle: Hypertension type: essential hypertension Qualified Code( s): I10 - Essential (primary) hypertension Plan: elevated overnight. - will also start on ASA once cleared by CV surgery -Increased lisinopril to 20 mg daily . (4) Diabetes mellitus Code(s): E11.9 - TYPE 2 DIABETES MELLITUS WITHOUT COMPLICATIONS Status: Acute QualifierTitle: Diabetes mellitus type: type 2 Diabetes mellitus complication status: without complication Diabetes mellitus custodial insulin use: without custodial use Qualified Code(s): E11.9 - Type 2 diabetes mellitus without complications Plan: A1c 12.1%. - improved with increase in levemir . continue mild SSI. - restart metformin at time of discharge. (5) Hepatitis C virus infection Code(s): B19.20 - UNSPECIFIED VIRAL HEPATITIS C WITHOUT HEPATIC COMA Status: Acute QualifierTitle: Viral hepatitis chronicity: chronic Hepatic coma status: without hepatic coma Qualified Code(s): B18.2 - Chronic viral hepatitis C Plan: viral load positive. will need outpatient evaluation and treatment. (6) Polysubstance abuse Code(s): F19.10 - OTHER PSYCHOACTIVE SUBSTANCE ABUSE, UNCOMPLICATED Status: Acute <Arron Burgos - Last Filed: 09/26/17 09:16> Attending Addendum - Attending Addendum I personally evaluated the patient and discussed the management with Dr. Burgos I agree with the History, Examination, Assessment and Plan documented above with any addition or exceptions noted below- Patient denies any complaints. Wants to go home. Has been ambulating in the halls. Tm 101.9 VSS A/P: 1) empyema s/p decortication- continua current antibiotics, 2) HTN- adjust meds as BP still running high, 3) DM- good control with present regimen; continue current insulin. <Mercedes Jackson - Last Filed: 09/26/17 15:26>
[2017-09-26] MEDS: Lisinopril 20 MG TAB PO SCH (10:27)
[2017-09-27] MEDS: Piperacillin/Tazobactam 3.375 GM in Sodium Chloride 0.9% 100 ML IVPB SCH ×3 (06:29→18:01)
--- NOTE | 2017-09-27 06:54 | PDOC.FM ---
- Subjective Subjective: CC: Resting well. HPI: Patient states he is feeling better and still ready to go home. No concerns over night. - Objective MAR Reviewed: Yes Vital Signs & Weight: Vital Signs (12 hours) Temp Pulse Resp BP BP Pulse Ox 09/27/17 04:00 97.4 F L 103 H 18 109/95 H 95 09/26/17 23:46 98.2 F 97 16 132/69 97 09/26/17 20:31 109 H 182/83 H 09/26/17 20:25 100.7 F H 109 H 18 96 09/26/17 20:00 100.7 F H 109 H 16 182/83 H 96 Weight Admit Weight 55.792 kg Weight 55.792 kg I&O: 09/25/17 09/26/17 09/27/17 06:59 06:59 06:59 Intake Total 2550 2360 Output Total 1615 2120 Balance 935 240 Result Diagrams: 09/26/17 04:59 09/26/17 04:59 EKG Reviewed by me: Yes (SR rate 96. possible LVH. normal QTc interval. ) <Arron Burgos - Last Filed: 09/27/17 11:09> - Objective Vital Signs & Weight: Vital Signs (12 hours) Temp Pulse Resp BP BP Pulse Ox 09/27/17 16:00 100.9 F H 117 H 18 152/72 H 95 09/27/17 10:14 99 182/83 H 09/27/17 08:00 98.2 F 117 H 18 171/78 H 98 09/27/17 07:15 99.6 F 99 16 171/78 H 98 Weight Admit Weight 55.792 kg Weight 55.792 kg I&O: 09/26/17 09/27/17 09/28/17 06:59 06:59 06:59 Intake Total 2360 Output Total 2120 Balance 240 Result Diagrams: 09/26/17 04:59 09/26/17 04:59 <Mercedes Jackson - Last Filed: 09/27/17 17:44> Phys Exam - Physical Examination Constitutional: NAD HEENT: moist MMs, sclera anicteric Respiratory: no wheezing, clear to auscultation bilateral Cardiovascular: RRR, no significant murmur Gastrointestinal: soft, non-tender Neurological: non-focal, moves all 4 limbs Psychiatric: normal affect, A&O x 3 <Arron Burgos W - Last Filed: 09/27/17 11:09> Dx/Plan (1) Empyema Code(s): J86.9 - PYOTHORAX WITHOUT FISTULA Status: Acute Plan: Zosyn day 5. CV surgery consulted. POD 4 thoracospcy. wound culture positive for strep anginosus. Sensitivities pending. - will discuss antibiotic coverage with Pulmonolgy. - [place] for pain - CV surgery has cleared for d/c (2) CAP (community acquired pneumonia) Code(s): J18.9 - PNEUMONIA, UNSPECIFIED ORGANISM Status: Acute QualifierTitle: Laterality: right Lung location: middle lobe of lung Qualified Code(s): J18.1 - Lobar pneumonia, unspecified organism Plan: Zosyn day 5 Fever up to 100.7 F overnight. has been trending down and likely due to size of infection - repeat blood cultures. (3) HTN (hypertension) Code(s): I10 - ESSENTIAL (PRIMARY) HYPERTENSION Status: Acute QualifierTitle: Hypertension type: essential hypertension Qualified Code( s): I10 - Essential (primary) hypertension Plan: elevated overnight. still requiring PRNs - will also start on ASA once cleared by CV surgery - Increased amlodipine to 10mg daily (4) Diabetes mellitus Code(s): E11.9 - TYPE 2 DIABETES MELLITUS WITHOUT COMPLICATIONS Status: Acute QualifierTitle: Diabetes mellitus type: type 2 Diabetes mellitus complication status: without complication Diabetes mellitus terminal make up operator insulin use: without care home use Qualified Code(s): E11.9 - Type 2 diabetes mellitus without complications Plan: A1c 12.1%. - improved with increase in levemir . continue mild SSI. - restart metformin at time of discharge. (5) Hepatitis C virus infection Code(s): B19.20 - UNSPECIFIED VIRAL HEPATITIS C WITHOUT HEPATIC COMA Status: Acute QualifierTitle: Viral hepatitis chronicity: chronic Hepatic coma status: without hepatic coma Qualified Code(s): B18.2 - Chronic viral hepatitis C Plan: viral load positive. will need outpatient evaluation and treatment. (6) Polysubstance abuse Code(s): F19.10 - OTHER PSYCHOACTIVE SUBSTANCE ABUSE, UNCOMPLICATED Status: Acute (7) Tachycardia with heart rate 100-120 beats per minute Code(s): R00.0 - TACHYCARDIA, UNSPECIFIED Status: Acute Plan: etiology unknown at this time. possibly 2/2 pain vs infection. EKG shows normal sinus rhythm. - repeat blood cultures <Arron Burgos - Last Filed: 09/27/17 11:09> Attending Addendum - Attending Addendum I personally evaluated the patient and discussed the management with Dr. Burgos I agree with the History, Examination, Assessment and Plan documented above with any addition or exceptions noted below- [place] feeling well; wants to go home. Ambulating in [place]. Tm100.7 VSS. A/P: 1) Empyema- continue IV abx; fever idowntrending; continue to monitor. Possible discharge soon. 2) Dm- well controlled on current regimen, 3) HTN- adjust meds as indicated. <Mercedes Jackson - Last Filed: 09/27/17 17:44>
--- NOTE | 2017-09-27 07:44 | RAD ---
AP CHEST: Indication: Status post thoracotomy. Comparison: 09-24-17 FINDINGS/IMPRESSION: Right sided thoracotomy tube has been removed. Complex pleural collection within right hemithorax and right major fissure are unchanged. Chronic lung changes are similar. No pneumothorax is evident. Sub cutaneous emphysema overlying right chest wall is similar. POS: [facility]
--- NOTE | 2017-09-27 08:13 | PRG ---
DATE OF SERVICE: 09/27/2017 SUBJECTIVE: The patient says he feels okay. OBJECTIVE: VITAL SIGNS: His T-max yesterday is 100.7, currently 97.4, blood pressure 109/95, O2 sat 95%. HEENT: Unremarkable. NECK: No JVD. CHEST: Clear anteriorly. CARDIOVASCULAR: S1 and S2 regular. ABDOMEN: Soft. EXTREMITIES: No edema. IMAGING: His pleural fluid cultures showed Streptococcus anginosus. No sensitivities were done on t hat. LABORATORY DATA: No new labs were obtained today. ASSESSMENT: 1. Empyema. 2. Status post decortication. PLAN: Continue IV antibiotics. It will take quite some time for his x-ray to come back to normal.
[2017-09-27] MEDS: Amlodipine 10 MG TAB PO SCH (10:14)
[2017-09-27] MEDS: Insulin Detemir 100 UNITS/ML 25 UNITS in Pre-Filled Syringe 1 EACH SC SCH (10:14)
[2017-09-27] MEDS: Lisinopril 20 MG TAB PO SCH ×2 (10:14→21:56)
[2017-09-27] MEDS: HumaLOG 300 UNITS/3 ML VIAL SC PRN (14:24)
[2017-09-28] MEDS: Piperacillin/Tazobactam 3.375 GM in Sodium Chloride 0.9% 100 ML IVPB SCH ×4 (00:10→17:58)
[2017-09-28] MEDS: Acetaminophen 325 MG TAB PO PRN (00:19)
[2017-09-28 07:28] LABS: #Eosinphils 0.2 thou/uL (0.0-0.7); #Lymphocytes 0.8 thou/uL (1.20-3.40); #Monocytes 0.8 thou/uL (0.11-0.59); #Neutrophils 5.2 thou/uL (1.40-6.50); %Basophils 0.5 % (0.0-1.0); %Lymphocytes 11.6 % (21.0-51.0); %Monocytes 10.9 % (0.0-10.0); Hematocrit 32.2 % (42.0-52.0); Mean Platelet Volume 5.5 fL (7.4-10.4); Red Blood Cell (RBC) Count 3.33 mill/uL (4.70-6.10); White Blood Cell (WBC) Count 7.1 thou/uL (4.8-10.8)
[2017-09-28 07:50] LABS: Anion Gap 9 mmol/L (10-20); BUN (Urea Nitrogen) 6 mg/dL (8.4-25.7); Calc. Creatinine Clearance 67 mL/min (70-130); Carbon Dioxide 28 mmol/L (23-31); Chloride 102 mmol/L (98-107); Estimated GFR-MDRD Greater than 90
[2017-09-28] MEDS ORDERED: metFORMIN 500 MG TAB PO SCH ×2 (09:00→09:30)
[2017-09-28] MEDS ORDERED: Chlorthalidone 25 MG TAB PO SCH (09:00)
--- NOTE | 2017-09-28 09:00 | PDOC.FM ---
- Subjective Subjective: CC: "I can't sleep and need to sleep." HPI: Patient states he has had difficulty sleeping since admission. Also informed him Dr. Lyon recommends IV abx until afebrile. He expressed understanding. - Objective MAR Reviewed: Yes Vital Signs & Weight: Vital Signs (12 hours) Temp Pulse Resp BP BP Pulse Ox 09/28/17 08:00 98.8 F 106 H 20 145/77 H 95 09/28/17 04:29 98.5 F 83 17 144/70 H 97 09/28/17 00:13 100.3 F H 100 17 165/76 H 97 09/27/17 21:56 186/81 H 09/27/17 21:06 100.3 F H 112 H 17 186/81 H 95 Weight Admit Weight 55.792 kg Weight 55.792 kg Result Diagrams: 09/28/17 07:19 09/28/17 07:19 <Arron Burgos - Last Filed: 09/28/17 10:17> - Objective Vital Signs & Weight: Vital Signs (12 hours) Temp Pulse Resp BP BP Pulse Ox 09/28/17 09:02 106 H 09/28/17 09:01 186/81 H 09/28/17 08:00 98.8 F 106 H 20 145/77 H 95 09/28/17 04:29 98.5 F 83 17 144/70 H 97 09/28/17 00:13 100.3 F H 100 17 165/76 H 97 Weight Admit Weight 55.792 kg Weight 55.792 kg Result Diagrams: 09/28/17 07:19 09/28/17 07:19 <Mercedes Jackson - Last Filed: 09/28/17 11:09> Phys Exam - Physical Examination Constitutional: NAD HEENT: moist MMs, sclera anicteric Neck: no nodes, no JVD Respiratory: no wheezing, clear to auscultation bilateral Cardiovascular: RRR, no significant murmur Gastrointestinal: soft, non-tender Musculoskeletal: no edema Neurological: non-focal, moves all 4 limbs Psychiatric: normal affect, A&O x 3 <Arron Burgos - Last Filed: 09/28/17 10:17> Dx/Plan (1) Empyema Code(s): J86.9 - PYOTHORAX WITHOUT FISTULA Status: Acute Plan: Zosyn day 6. CV surgery consulted. POD 4 thoracospcy. wound culture positive for strep anginosus. Sensitivities not sent. - Pulm recommends IV Abx until afebrile. small fever overnight. monitor additional day in hospital. - [place] for pain - CV surgery has cleared for d/c (2) CAP (community acquired pneumonia) Code(s): J18.9 - PNEUMONIA, UNSPECIFIED ORGANISM Status: Acute QualifierTitle: Laterality: right Lung location: middle lobe of lung Qualified Code(s): J18.1 - Lobar pneumonia, unspecified organism Plan: Zosyn day 6 Fever up to 100.9 F overnight. - monitor additional day. (3) HTN (hypertension) Code(s): I10 - ESSENTIAL (PRIMARY) HYPERTENSION Status: Acute QualifierTitle: Hypertension type: essential hypertension Qualified Code( s): I10 - Essential (primary) hypertension Plan: elevated overnight. 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 - improved with increase in levemir . continue mild SSI. - started metforming 500 mg BID. (5) Hepatitis C virus infection Code(s): B19.20 - UNSPECIFIED VIRAL HEPATITIS C WITHOUT HEPATIC COMA Status: Acute QualifierTitle: Viral hepatitis chronicity: chronic Hepatic coma status: without hepatic coma Qualified Code(s): B18.2 - Chronic viral hepatitis C Plan: viral load positive. will need outpatient evaluation and treatment. (6) Polysubstance abuse Code(s): F19.10 - OTHER PSYCHOACTIVE SUBSTANCE ABUSE, UNCOMPLICATED Status: Acute (7) Tachycardia with heart rate 100-120 beats per minute Code(s): R00.0 - TACHYCARDIA, UNSPECIFIED Status: Acute Plan: etiology unknown at this time. possibly 2/2 pain vs infection. EKG shows normal sinus rhythm. <Arron Burgos - Last Filed: 09/28/17 10:17> Attending Addendum - Attending Addendum I personally evaluated the patient and discussed the management with Dr. Burgos I agree with the History, Examination, Assessment and Plan documented above with any addition or exceptions noted below- Patient without complaints. Ambulating in [place]. Tm 100.9 VSS A/P: 1) Empyema- continue IV antibiotics until afebrile 24 hours, 2) DM- improved; continue to adjust insulin as needed; started on metformin, 3) HTN- improved; chlorthalidone added. <Mercedes Jackson - Last Filed: 09/28/17 11:09>
[2017-09-28] MEDS: Lisinopril 20 MG TAB PO SCH ×2 (09:01→21:24)
[2017-09-28] MEDS: Amlodipine 10 MG TAB PO SCH (09:02)
[2017-09-28] MEDS: Insulin Detemir 100 UNITS/ML 25 UNITS in Pre-Filled Syringe 1 EACH SC SCH (09:02)
[2017-09-28] MEDS ORDERED: Melatonin 3 MG TAB PO PRN (09:07)
[2017-09-28] MEDS ORDERED: Melatonin 3 MG TAB PO SCH (09:30)
--- NOTE | 2017-09-28 10:29 | PRG ---
DATE OF SERVICE: 09/28/2017 SUBJECTIVE: He is doing well, had no acute complaints. PHYSICAL EXAMINATION: VITAL SIGNS: His T-max was 100.9 yesterday, currently 98.8; pulse 106; respirations 20; O2 sat 95%. HEENT: Unremarkable. NECK: No JVD. CHEST: Clear. CARDIAC: S1 and S2 regular. ABDOMEN: Soft. EXTREMITIES: No edema. ASSESSMENT: 1. Empyema. 2. Pneumonia. PLAN: Continue antibiotics - we will not change to oral antibiotics until he defervesce. He is prob ably going to need up to 21 days of antibiotics. He can change to Augmentin once he is off the IV an tibiotics. We can move towards rehab or discharge soon.
[2017-09-28] MEDS: metFORMIN 500 MG TAB PO SCH (17:58)
[2017-09-29] MEDS: Piperacillin/Tazobactam 3.375 GM in Sodium Chloride 0.9% 100 ML IVPB SCH ×4 (00:29→18:19)
[2017-09-29] MEDS: Chlorthalidone 25 MG TAB PO SCH (08:54)
[2017-09-29] MEDS: Insulin Detemir 100 UNITS/ML 25 UNITS in Pre-Filled Syringe 1 EACH SC SCH (08:56)
[2017-09-29] MEDS: Amlodipine 10 MG TAB PO SCH (08:56)
[2017-09-29] MEDS: metFORMIN 500 MG TAB PO SCH ×2 (08:56→17:18)
[2017-09-29] MEDS: HumaLOG 300 UNITS/3 ML VIAL SC PRN ×3 (08:57→22:00)
--- NOTE | 2017-09-29 09:01 | PRG ---
DATE OF SERVICE: 09/29/2017 Mr. Jung is upset that he has the hiccups. He wants to go home. PHYSICAL EXAMINATION: VITAL SIGNS: Temperature is 100.0, pulse 86, respirations 15, O2 sat 97%, blood pressure 140/79. HEENT: Unremarkable. NECK: No JVD. LUNGS: Diminished breath sounds right base. CARDIAC: S1 and S2 regular. ABDOMEN: Soft. EXTREMITIES: No edema. ASSESSMENT: 1. Right-sided empyema. 2. Cocaine abuse. 3. Continued fever. PLAN: 1. Continue IV antibiotics. 2. Reglan as needed for his hiccups.
--- NOTE | 2017-09-29 09:45 | PDOC.FM ---
- Subjective Subjective: CC: ready to go home HPI: No new changes overnight. Complains of hiccups. pulm has given PRN reglan and wants additional day of IV abx. Patient is frustrated with current plan. Explained again how sick he was at time of admission and needs closer monitoring until afebrile. - Objective MAR Reviewed: Yes Vital Signs & Weight: Vital Signs (12 hours) Temp Pulse Resp BP Pulse Ox 09/29/17 08:15 99.0 F 86 18 137/65 97 09/29/17 04:43 100.0 F H 86 15 140/79 97 09/29/17 00:10 100.3 F H 89 17 152/69 H 98 Weight Admit Weight 55.792 kg Weight 55.792 kg I&O: 09/28/17 09/29/17 09/30/17 06:59 06:59 06:59 Output Total 1800 Balance -1800 Result Diagrams: 09/28/17 07:19 09/28/17 07:19 <Arron Burgos - Last Filed: 09/29/17 10:48> - Objective Vital Signs & Weight: Vital Signs (12 hours) Temp Pulse Resp BP Pulse Ox 09/29/17 15:55 99.2 F 88 16 120/66 98 09/29/17 12:00 98.9 F 95 18 137/65 99 09/29/17 08:15 99.0 F 86 18 137/65 97 09/29/17 08:00 98.9 F 95 18 Weight Admit Weight 55.792 kg Weight 55.792 kg I&O: 09/28/17 09/29/17 09/30/17 06:59 06:59 06:59 Output Total 1800 Balance -1800 Result Diagrams: 09/28/17 07:19 09/28/17 07:19 <Mercedes Jackson - Last Filed: 09/29/17 18:11> Phys Exam - Physical Examination Constitutional: NAD HEENT: moist MMs, sclera anicteric Respiratory: no wheezing, clear to auscultation bilateral decreaed breath sounds right side. Cardiovascular: RRR, no significant murmur Gastrointestinal: soft, non-tender Musculoskeletal: no edema Neurological: normal sensation, moves all 4 limbs Psychiatric: normal affect, A&O x 3 <Arron Burgos - Last Filed: 09/29/17 10:48> Dx/Plan (1) Empyema Code(s): J86.9 - PYOTHORAX WITHOUT FISTULA Status: Acute Plan: Zosyn day 7. CV surgery consulted. POD 4 thoracospcy. wound culture positive for strep anginosus. Sensitivities not sent. - Pulm recommends IV Abx until afebrile. small fever overnight. monitor additional day in hospital. needs PO augmentin x21 days at time of d/c - [place] for pain - CV surgery has cleared for d/c (2) CAP (community acquired pneumonia) Code(s): J18.9 - PNEUMONIA, UNSPECIFIED ORGANISM Status: Acute QualifierTitle: Laterality: right Lung location: middle lobe of lung Qualified Code(s): J18.1 - Lobar pneumonia, unspecified organism Plan: Zosyn day 7. Quant Gold negative. Fever up to 100.3 F overnight. - monitor additional day. (3) HTN (hypertension) Code(s): I10 - ESSENTIAL (PRIMARY) HYPERTENSION Status: Acute QualifierTitle: Hypertension type: essential hypertension Qualified Code( s): I10 - Essential (primary) hypertension Plan: elevated overnight. Did not require PRNs - increased cholorthalidone 25 mg daily (4) Diabetes mellitus Code(s): E11.9 - TYPE 2 DIABETES MELLITUS WITHOUT COMPLICATIONS Status: Acute QualifierTitle: Diabetes mellitus type: type 2 Diabetes mellitus complication status: without complication Diabetes mellitus nursing home insulin use: without nursing home use Qualified Code(s): E11.9 - Type 2 diabetes mellitus without complications Plan: A1c 12.1%. - improved with increase in levemir . continue mild SSI. - increase metformin to 1000 mg BID. (5) Hepatitis C virus infection Code(s): B19.20 - UNSPECIFIED VIRAL HEPATITIS C WITHOUT HEPATIC COMA Status: Acute QualifierTitle: Viral hepatitis chronicity: chronic Hepatic coma status: without hepatic coma Qualified Code(s): B18.2 - Chronic viral hepatitis C Plan: viral load positive. will need outpatient evaluation and treatment. (6) Tachycardia with heart rate 100-120 beats per minute Code(s): R00.0 - TACHYCARDIA, UNSPECIFIED Status: Acute Plan: no recorded events overnight. (7) Polysubstance abuse Code(s): F19.10 - OTHER PSYCHOACTIVE SUBSTANCE ABUSE, UNCOMPLICATED Status: Acute <Arron Burgos - Last Filed: 09/29/17 10:48> Attending Addendum - Attending Addendum I personally evaluated the patient and discussed the management with Dr. Burgos. I agree with the History, Examination, Assessment and Plan documented above with any addition or exceptions noted below- Patient tired of being in hospital. Tm 100.3 VSS. A/P: 1) Empyema- continue IV abx till 24 hours afebrile then transition to po abx, 2) DM- continue to adjust insulin as per BG, 3) HTN- better control; continue current meds. <Mercedes Jackson - Last Filed: 09/29/17 18:11>
[2017-09-29] MEDS: Metoclopramide HCl 10 MG TAB PO PRN ×2 (10:00→17:18)
[2017-09-29] MEDS: Lisinopril 20 MG TAB PO SCH (21:59)
[2017-09-30] MEDS: Piperacillin/Tazobactam 3.375 GM in Sodium Chloride 0.9% 100 ML IVPB SCH ×2 (00:51→06:14)
--- NOTE | 2017-09-30 07:47 | PRG ---
DATE OF SERVICE: 09/30/2017 The patient is doing well and wants to go home. PHYSICAL EXAMINATION: VITAL SIGNS: Temperature 98.4, pulse 71, blood pressure 147/80, O2 saturation 99%. HEENT: Unremarkable. NECK: No JVD. CHEST: Clear. CARDIAC: S1 and S2 regular. ABDOMEN: Soft. EXTREMITIES: No edema. ASSESSMENT: 1. Status post evacuation of empyema. 2. Resolved fever. 3. Cocaine abuse. PLAN: I believe the patient is stable to go home. I would have him take Augmentin for a total of 14 days 875 mg b.i.d. He needs to follow up for an x-ray in 3-4 weeks, that can be with primary care.
[2017-09-30 08:47] VITALS: BP 149/57; TEMP 98.1
[2017-09-30] MEDS: metFORMIN 500 MG TAB PO SCH (08:51)
[2017-09-30] MEDS: Amlodipine 10 MG TAB PO SCH (08:52)
[2017-09-30] MEDS: Insulin Detemir 100 UNITS/ML 25 UNITS in Pre-Filled Syringe 1 EACH SC SCH (08:52)
[2017-09-30] MEDS: Chlorthalidone 25 MG TAB PO SCH (08:52)
--- NOTE | 2017-09-30 09:05 | PDOC.FM ---
- Subjective Subjective: CC: no complaint offered HPI: States he is ready to go home but having difficulty finding a ride. Informed CM can help arrange transportation. He was agreeable. - Objective MAR Reviewed: Yes Vital Signs & Weight: Vital Signs (12 hours) Temp Pulse Resp BP BP Pulse Ox 09/30/17 08:00 98.1 F 72 18 149/57 H 100 09/30/17 04:25 98.4 F 71 18 149/71 H 99 09/29/17 21:59 147/80 H Weight Admit Weight 55.792 kg Weight 55.792 kg I&O: 09/29/17 09/30/17 10/01/17 06:59 06:59 06:59 Intake Total 1930 Output Total 1800 1800 Balance -1800 130 Result Diagrams: 09/28/17 07:19 09/28/17 07:19 <Arron Burgos - Last Filed: 09/30/17 09:04> - Objective Vital Signs & Weight: Vital Signs (12 hours) Temp Pulse Resp BP BP Pulse Ox 09/30/17 08:00 98.1 F 72 18 149/57 H 100 09/30/17 04:25 98.4 F 71 18 149/71 H 99 09/29/17 21:59 147/80 H Weight Admit Weight 55.792 kg Weight 55.792 kg I&O: 09/29/17 09/30/17 10/01/17 06:59 06:59 06:59 Intake Total 1930 Output Total 1800 1800 Balance -1800 130 Result Diagrams: 09/28/17 07:19 09/28/17 07:19 <Mercedes Jackson - Last Filed: 09/30/17 10:12> Phys Exam - Physical Examination Constitutional: NAD HEENT: moist MMs, sclera anicteric Respiratory: no wheezing, clear to auscultation bilateral decreased air movment RLL Cardiovascular: RRR, no significant murmur Gastrointestinal: soft, non-tender Musculoskeletal: no edema Neurological: non-focal, moves all 4 limbs Psychiatric: normal affect, A&O x 3 <Arron Burgos - Last Filed: 09/30/17 09:04> Dx/Plan (1) Empyema Code(s): J86.9 - PYOTHORAX WITHOUT FISTULA Status: Acute Plan: Zosyn day 8. CV surgery consulted. POD 4 thoracospcy. wound culture positive for strep anginosus. Sensitivities not sent. - Pulm cleared for d/c recommend augmentin x14 days. - has not required pain medication for several days. - CV surgery has cleared for d/c (2) CAP (community acquired pneumonia) Code(s): J18.9 - PNEUMONIA, UNSPECIFIED ORGANISM Status: Acute QualifierTitle: Laterality: right Lung location: middle lobe of lung Qualified Code(s): J18.1 - Lobar pneumonia, unspecified organism Plan: Zosyn day 8. Quant Gold negative. - afebrile overnight - d/c today (3) HTN (hypertension) Code(s): I10 - ESSENTIAL (PRIMARY) HYPERTENSION Status: Acute QualifierTitle: Hypertension type: essential hypertension Qualified Code( s): I10 - Essential (primary) hypertension Plan: improving. still no PRNs required. - continue adjustment outpatient. (4) Diabetes mellitus Code(s): E11.9 - TYPE 2 DIABETES MELLITUS WITHOUT COMPLICATIONS Status: Acute QualifierTitle: Diabetes mellitus type: type 2 Diabetes mellitus complication status: without complication Diabetes mellitus snf insulin use: without snf use Qualified Code(s): E11.9 - Type 2 diabetes mellitus without complications Plan: A1c 12.1%. - continue outpatient adjustment. rx sent for DM supplies. (5) Hepatitis C virus infection Code(s): B19.20 - UNSPECIFIED VIRAL HEPATITIS C WITHOUT HEPATIC COMA Status: Acute QualifierTitle: Viral hepatitis chronicity: chronic Hepatic coma status: without hepatic coma Qualified Code(s): B18.2 - Chronic viral hepatitis C Plan: viral load positive. will need outpatient evaluation and treatment. (6) Tachycardia with heart rate 100-120 beats per minute Code(s): R00.0 - TACHYCARDIA, UNSPECIFIED Status: Resolved Plan: no recorded events overnight. (7) Polysubstance abuse Code(s): F19.10 - OTHER PSYCHOACTIVE SUBSTANCE ABUSE, UNCOMPLICATED Status: Acute <Arron Burgos - Last Filed: 09/30/17 09:04> Attending Addendum - Attending Addendum I personally evaluated the patient and discussed the management with Dr. Burgos I agree with the History, Examination, Assessment and Plan documented above with any addition or exceptions noted below-Patient denies any complaints. Afebrile VSS. A/P: 1) Empyema- afebrile x 24 hours. D/c home today on po augmentin; 2) DM- stable; adjust insulin on outpatient basis. 3) HTN- stable. <Mercedes Jackson - Last Filed: 09/30/17 10:12>
--- NOTE | 2017-09-30 14:35 | DIS-2 ---
DATE OF ADMISSION: 09/22/2017 DATE OF DISCHARGE: 09/30/2017 RESIDENT: Arron Burgos M.D. ADMITTING ATTENDING: Tyler Morton M.D. DISCHARGE ATTENDING: Mercedes Jackson M.D. CONSULTATIONS: 1. Dr. Kaushik Lyon, Pulmonology. 2. Dr. Luigi Fenton, Cardiovascular Surgery. PROCEDURES: 1. Thoracoscopy with right-sided decortication on 09/23/2017. IMAGIN. Chest x-ray 09/22/2017, right lung lenticular shaped mass, may reflect loculated effusion or large lung mass, moderate loculated right pleural effusion , emphysema. 2. CT chest and thorax with contrast and 3D processing, no evidence of pulmonary embolism, right chest pleural effusion with multiple loculations and 7 mm perifissural nodule along the right minor fissure. 3. Chest x-ray 09/23/2017, improved pleural and parenchymal opacities of the right lung base, 2 right-sided chest tubes are present. 4. Chest x-ray 09/24/2017, no interval change. 5. Chest x-ray 09/27/2017, right sided thoracostomy tube removed, complex pleural collection and right hemithorax and right major fissure are unchanged, chronic lung changes similar. PERTINENT LABORATORY FINDINGS: White blood cell count at admission 16.3, trended down to 7.1. Neutrophils at admission 85%, trended to 74%. Blood glucose on admission 539 and at the time of discharge 91. Urine drug screen positive for cocaine. MICROBIOLOGY: Hepatitis B core total antibody, reactive. Surface antigen and antibody, nonreactive. Hepatitis C antibody positive with quantitative RNA of 1 ,550,000. Fungal culture is pending at the time of discharge. His blood cultures from 09/22/2017 negative and after 5 days, blood cultures from 2016 negative at 48 hours. Acid-fast stain negative, culture pending. Left lung culture, positive for Streptococcus anginosus group. QuantiFERON gold negative. PRIMARY DIAGNOSES: 1. Right-sided empyema, status post thoracoscopy with decortication. 2. Hepatitis C infection. 3. Insulin-dependent diabetes mellitus type 2 - uncontrolled. 4. Hypertension. 5. Cocaine abuse. 6. History of medication noncompliance. DISCHARGE MEDICATIONS: 1. Amlodipine 10 mg p.o. daily. 2. Augmentin 875/125 mg q.12 hours for 14 days. 3. Aspirin 81 mg daily. 4. Glucose test strips. Check blood glucose before meals and at bedtime. 5. Glucometer. 6. Chlorthalidone 25 mg daily. 7. Lantus 25 units subcutaneous q.a.m. 8. Lancets to check blood glucose before meals and at bedtime. 9. Lisinopril 40 mg at bedtime. 10. Metformin 1000 mg p.o. b.i.d. 11. Insulin pen needles. DISCONTINUED MEDICATIONS: None. HISTORY OF PRESENT ILLNESS AND HOSPITAL COURSE: Mr. Jung is a pleasant 67-year -old -Dominican male with past medical history of hypertension, diabetes and no recent outpatient followup. He presented with a several month history of right-sided chest pain, night sweats, intermittent fevers and chills and nonproductive cough. He also reported weight loss over the same time. He states he has not been taken any of his medications. Initial imaging listed above showed a right-sided empyema. It was also thought that the patient may be in hyperglycemic hyperosmolar syndrome. He was started on insulin drip, but his blood sugar was quickly corrected and he no longer required the drip. Cardiovascular Surgery was consulted as was Pulmonology. He underwent decortication of the empyema on 09/23/2017 and had right-sided chest tube placed for approximately 2 days postoperatively. Chest tube was removed once drainage had decreased. The patient remained febrile until 24 hours prior to the day of discharge. However, his fever curve trended down following the decortication. He also remained on IV Zosyn throughout this time and was switched to p.o. Augmentin at the time of discharge. The patient was found to have uncontrolled hypertension and diabetes at the time of admission. He was started on Levemir 15 units and titrated up to 25 units daily. He will require additional titration as outpatient. For his hypertension, he was initially started on amlodipine and lisinopril. These were titrated to the maximum dose before initiating chlorthalidone therapy. His blood pressure responded well, but will still require additional followup and adjustment of medication as outpatient. He was informed that he is tested positive for hepatitis C while in the hospital and would require outpatient followup with Gastroenterology. He was counseled on polysubstance abuse and the importance of cessation was emphasized. DISCHARGE DISPOSITION: He is discharged in stable condition and will likely make a full recovery from his current infection assuming he follows through with his outpatient antibiotic therapy. His long-term prognosis is good if he follows through with outpatient followup and manages his chronic comorbidities. DISCHARGE INSTRUCTIONS: 1. Location: Home. 2. Diet: Heart healthy, consistent carbohydrates. 3. Activity: As tolerated. 4. Follow up with Dr. Arron Burgos at [facility] within 1 week of discharge for further management of his chronic medical conditions. Less than 30 minutes spent on discharge including preparing discharge materials and providing patient education. GEN
--- NOTE | 2017-10-15 13:20 | EKG ---
Test Reason : Blood Pressure : / mmHG Vent. Rate : 098 BPM Atrial Rate : 098 BPM P-R Int : 128 ms QRS Dur : 078 ms QT Int : 338 ms P-R-T Axes : 066 067 053 degrees QTc Int : 431 ms Normal sinus rhythm Normal ECG Confirmed by WESLEY WU MD ([id number]) on 10/15/2017 1:19:49 PM Referred By: SOLOMON Confirmed By:WESLEY WU MD
== END 2017-09-30 10:44 | disposition home or self-care (01) | DRG 163 ==
LOC: ERS 09:19 → T4-B 15:42 → CCU 09-23 13:36 → IMCU/EMU 09-23 19:15 → SURG B 09-24 14:19
PROVIDERS: ADMIT Internal Medicine; ATTEND Internal Medicine
PROC: 0BCK4ZZ Extirpation of Matter from Right Lung, Percutaneous Endoscopic Approach (ICD-10-PCS; principal; 2017-09-23)
PROC: 0W9930Z Drainage of Right Pleural Cavity with Drainage Device, Percutaneous Approach (ICD-10-PCS; 2017-09-23)
DX: J86.9 Pyothorax without fistula (principal); J96.01 Acute respiratory failure with hypoxia; N17.9 Acute kidney failure, unspecified; E44.1 Mild protein-calorie malnutrition; Z68.1 Body mass index [BMI] 19.9 or less, adult; E11.65 Type 2 diabetes mellitus with hyperglycemia; I10 Essential (primary) hypertension; B95.4 Other streptococcus as the cause of diseases classified elsewhere; E78.5 Hyperlipidemia, unspecified; F17.210 Nicotine dependence, cigarettes, uncomplicated; F14.10 Cocaine abuse, uncomplicated; F10.10 Alcohol abuse, uncomplicated; Z91.14 Patient's other noncompliance with medication regimen; R00.0 Tachycardia, unspecified; B18.2 Chronic viral hepatitis C
CPT/HCPCS: 36415; 36416; 71010; 71275; 80048; 80053; 80061; 80306; 80307; 81003; 82010; 82330; 82553; 82803; 83036; 83735; 83930; 84100; 84484; 85025; 86480; 86704; 86706; 86780; 86803; 86850; 86900; 86901; 87040; 87070; 87102; 87116; 87205; 87206; 87340; 87389; 87522; 93005; 93010; 94760; 96361; 96365; 96367; 96375; A4216; G8978-GP-CK; G8979-GP-CH; G8987-GO-CH; G8988-GO-CH; G8989-GO-CH; J0360; J0456; J0696; J1100; J1815; J1885; J2001; J2405; J2543; J2704; J3010; J7050

== ENCOUNTER 2017-10-13 00:19 | Inpatient (IN) | payer MEDICARE ==
[2017-10-13 02:02] LABS: #Lymphocytes 0.8 thou/uL (1.20-3.40); #Monocytes 0.3 thou/uL (0.11-0.59); #Neutrophils 4.4 thou/uL (1.40-6.50); %Eosinophils 0.8 % (0.0-10.0); %Lymphocytes 14.9 % (21.0-51.0); %Monocytes 4.8 % (0.0-10.0); %Neutrophils 79.4 % (42.0-75.0); Hemoglobin 11.8 g/dL (14.0-18.0); Mean Corpuscular HGB CONC 32.7 g/dL (32.0-36.0); Mean Corpuscular Hemoglobin 31.1 pg (27.0-31.0); Mean Corpuscular Volume 95.1 fl (80.0-94.0); Mean Platelet Volume 5.7 fL (7.4-10.4); Platelet Count 460 thou/uL (130-400); RBC Distribution Width 12.3 % (11.5-14.5); Red Blood Cell (RBC) Count 3.78 mill/uL (4.70-6.10); White Blood Cell (WBC) Count 5.5 thou/uL (4.8-10.8)
[2017-10-13 02:23] LABS: ALT (SGPT) 25 U/L (8-55); AST (SGOT) 50 U/L (5-34); Albumin 3.5 g/dL (3.4-4.8); Alkaline Phosphatase 137 U/L (40-150); Anion Gap 18 mmol/L (10-20); BUN (Urea Nitrogen) 12 mg/dL (8.4-25.7); Bilirubin, Total 0.4 mg/dL (0.2-1.2); Calc. Creatinine Clearance 0 mL/min (70-130); Calcium 9.6 mg/dL (7.8-10.44); Carbon Dioxide 22 mmol/L (23-31); Chloride 94 mmol/L (98-107); Estimated GFR-MDRD Greater than 90; Globulin 6.6 g/dL (2.4-3.5); Glucose 190 mg/dL (80-115); Potassium 4.1 mmol/L (3.5-5.1); Protein, Total 10.1 g/dL (5.8-8.1); Sodium 130 mmol/L (136-145)
[2017-10-13] MEDS ORDERED: Piperacillin/Tazobactam 4.5 GM in Sodium Chloride 0.9% 100 ML IVPB SCH (03:30)
[2017-10-13 05:14] LABS: Bilirubin Negative (Negative); Blood, Urine Negative (Negative); Clarity CLEAR (Clear); Glucose, Urine (Dipstick) 250 mg/dL (Negative); Leukocyte Negative (Negative); Nitrite Negative (Negative); Protein, Urine (Dipstick) Negative (Neg-Trace); Specific Gravity, Urine 1.017 (1.002-1.036); Urobilinogen 0.2 mg/dL (0.2-1.0)
[2017-10-13 06:19] LABS: Lactic Acid 3.2 mmol/L (0.5-2.2)
[2017-10-13 06:30] LABS: Amphetamine Not Detected (NotDetected); Barbiturates Screen Not Detected (NotDetected); Benzodiazepine Screen Not Detected (NotDetected); Cocaine Metabolite Screen Detected (NotDetected); Medtox Control Line Valid? VALID (VALID); Medtox Reader # READER 1; Methadone Not Detected (NotDetected); Methamphetamine Not Detected (NotDetected); Opiate Screen Not Detected (NotDetected); Oxycodone Screen Not Detected (NotDetected); Phencyclidine (PCP) Not Detected (NotDetected); THC/Cannabinoid Screen Not Detected (NotDetected); Tricyclic Screen Not Detected (NotDetected)
--- NOTE | 2017-10-13 06:52 | HP-2 ---
TIME AND DATE OF SERVICE: 4:30 a.m. on 10/13/2017. CODE STATUS: FULL CODE. PRIMARY CARE PHYSICIAN: Dr. Burgos. ATTENDING: Dr. Gates. RESIDENT: Shahzad Cunha M.D. HISTORIAN: Patient. CHIEF COMPLAINT: Hypoglycemia. HISTORY OF PRESENT ILLNESS: Mr. Jamil Jung is a 67-year-old male with past medical history of type 2 diabetes mellitus on insulin, hypertension, hyperlipidemia who presents after being found by famil y member unconscious on the couch. The patient states that he normally takes 25 units of Lantus in t he morning and does not remember if he took an extra dose at last night, all he remembers is eating a n apple that night. Family found him on the couch and was not able to wake him, so they called EMS a nd the EMS arrived, they checked his blood sugar and it was 30. They also checked a rectal temperatu re when he arrived to the ED and it was 91.4. In the ED, the patient received 2 liters of normal kathie ine, Zosyn and vancomycin. PAST MEDICAL HISTORY: 1. Hypertension. 2. Type 2 diabetes. 3. Hyperlipidemia. PAST SURGICAL HISTORY: None. ALLERGIES: None. MEDICATIONS: 1. Amlodipine 10 mg p.o. daily. 2. Chlorthalidone 25 mg p.o. daily. 3. Lantus 25 units subcu in the morning. 4. Lisinopril 40 mg p.o. at bedtime. 5. Metformin 1000 mg p.o. b.i.d. 6. Aspirin 81 mg p.o. daily. SOCIAL HISTORY: The patient endorses a 13-[id number]-ptio smoking history, but quit in 2001. He currently still dips. He admits to drinking about 5 beers a day and denies any drug use. REVIEW OF SYSTEMS: Twelve point review of systems including general, eyes, ENT, respiratory, CV, GI, , skin, musculoskeletal, neuro and psych were all reviewed and were unremarkable unless otherwise stated in HPI. PHYSICAL EXAMINATION: VITAL SIGNS: Blood pressure 115/56, pulse 74, respiratory rate 18, temperature 94.5, pulse ox 98% on room air, current weight 70 kilograms. GENERAL: The patient is alert and oriented x3, in no acute distress. Well-developed, well-nourished and appropriately interactive. EYES: Pupils equal, round, reactive to light and accommodation. Extraocular muscles intact. Conjun ctivae within normal limits. ENT: Tympanic membranes pearly arnett without bulging or erythema. Nasal mucosa and oropharynx within normal limits. NECK: Supple, without lymphadenopathy or thyromegaly. CARDIOVASCULAR: Regular rate and rhythm. No murmurs or gallops. RESPIRATORY: Normal effort, no retractions. LUNGS: Clear to auscultation bilaterally. SKIN: Warm and dry without cyanosis or lesions. ABDOMEN: Soft, nontender, bowel sounds x4. No masses or distention. EXTREMITIES: No clubbing, cyanosis or edema. MUSCULOSKELETAL: Structure and tone within normal limits. Full range of motion. NEUROLOGIC: No focal deficits. Sensation within normal limits. PSYCHIATRIC: Appropriate. LABORATORY DATA AND IMAGING: White blood cell count 5.5, hemoglobin 11.8, hematocrit 36.0, MCV 95, p latelets 460. Sodium 130, potassium 4.1, chloride 94, carbon dioxide 22, BUN 12, creatinine 0.95, gl ucose 190, calcium 9.6, total protein 10.1, albumin 3.5, total bilirubin 0.4, AST 50, ALT 25, alkalin e phosphatase 132, lactic acid 4.7. Blood cultures pending. UA showed white blood cell count 0, idalia kocyte esterase negative, glucose 250, ketones negative, nitrite negative, blood negative. Chest x-r ay showed no consolidation. ASSESSMENT AND PLAN: Mr. Jamil Jung is a 67-year-old male with past medical history of hypertensio n, type 2 diabetes, and hyperlipidemia. 1. Symptomatic hypoglycemia. Admit to tele. The cause is uncertain at this time. Minimal reliable history from patient, possibly due to excessive insulin intake. Accu-Cheks a.c. and at bedtime. Re start home medications, start Levemir at 15 units rather than home dose 25 units. 2. Lactic acidosis. No clear source, possibly due to hypoglycemia. Patient was unconscious for an unknown period of time. Blood cultures are pending. Hold antibiotics at this time unless source of infection reveals itself. 3. Hypertension. Continue home medications. Monitor vitals. 4. Type 2 diabetes. Lantus, Accu-Cheks, sliding scale insulin. 5. Macrocytic anemia. Check B12 and red blood cell folate. 6. CODE STATUS: FULL. 7. Activity: walking program. 8. Diet: Consistent carbohydrate. 9. Deep venous thrombosis prophylaxis, sequential compression devices. DISPOSITION AND LENGTH OF HOSPITAL STAY: 2 days. Symptomatic medications will be provided. History and physical exam as well as management discussed with Dr. Gates.
[2017-10-13] MEDS ORDERED: HumaLOG 300 UNITS/3 ML VIAL SC PRN (07:33)
[2017-10-13] MEDS ORDERED: Dextrose 5% in Water 1,000 ML IV PRN (07:33)
[2017-10-13] MEDS ORDERED: Dextrose 50% Abboject 50 ML SYRINGE SLOW IVP PRN (07:33)
[2017-10-13] MEDS ORDERED: Acetaminophen 325 MG TAB PO PRN (07:33)
--- NOTE | 2017-10-13 08:14 | RAD ---
CHEST ONE VIEW: HISTORY: Hypothermia. COMPARISON: Chest one view from 09/27/2017. FINDINGS: The right middle lobe air space opacity is improved. Small right pleural effusion is similar. The l eft lung is relatively clear. IMPRESSION: Mild interval improvement of the right middle and lower lobe air space opacity, although there is sti ll layering fluid in the minor fissure. POS: [facility]
[2017-10-13] MEDS: Amlodipine 10 MG TAB PO SCH (08:53)
[2017-10-13] MEDS: Sodium Chloride 0.9% 1,000 ML IV SCH ×2 (08:53→17:52)
[2017-10-13] MEDS: Chlorthalidone 25 MG TAB PO SCH (08:54)
[2017-10-13] MEDS: Lisinopril 20 MG TAB PO SCH (08:55)
[2017-10-13] MEDS: Amoxicillin/Potassium Clav 875 MG TAB PO SCH ×2 (08:58→20:52)
[2017-10-13] MEDS: Insulin Detemir 100 UNITS/ML 15 UNITS in Admixture Fee 1 EACH SC SCH (10:18)
[2017-10-13] MEDS ORDERED: FLU VACC TS2017-18 (>65YR) 0.5 ML SYRINGE IM ONE (12:00)
[2017-10-13 12:52] LABS: Anion Gap 11 mmol/L (10-20); BUN (Urea Nitrogen) 12 mg/dL (8.4-25.7); Calc. Creatinine Clearance 64 mL/min (70-130); Calcium 9.3 mg/dL (7.8-10.44); Carbon Dioxide 28 mmol/L (23-31); Chloride 104 mmol/L (98-107); Estimated GFR-MDRD Greater than 90; Glucose 74 mg/dL (80-115); Sodium 138 mmol/L (136-145)
[2017-10-13 14:50] LABS: Lactic Acid 2.6 mmol/L (0.5-2.2)
--- NOTE | 2017-10-13 16:35 | HP ---
I have reviewed the history and physical of Dr. Shahzad Cunha and agree with his assessment and plan. Briefly, Mr. Jung is a pleasant 67-year-old black male patient with a long history of type 2 diabete s. History is not real concise but the patient states that he normally takes 25 units of Lantus each morning. He remembers eating regular meals yesterday and does not remember whether he possibly took an extra dose of Lantus at bedtime. In the event, the family found him on the couch earlier this mo rning, was unable to arouse him. They called EMS who when they arrived checked the blood glucose fin ding it to be 30. He was administered appropriate resuscitative measures and transported to our ER. PHYSICAL EXAMINATION: I examined the patient much later in the morning. By now, he is awake, alert, in no distress. VITAL SIGNS: His blood pressure is 120/60s, pulse rate is 70, respirations 16. He is afebrile. His pulse ox on room air is 98%. GENERAL: Patient is completely awake, alert, oriented, in no distress. HEENT: No erythema or exudate. NECK: Supple. CARDIAC: His heart rhythm is regular, without gallop or murmur noted. LUNGS: Clear, without rales, rhonchi, or wheezes. ABDOMEN: Flat, benign and soft. NEUROLOGIC: He has no focal deficits. LABORATORY DATA: CBC: White count is 5500, hemoglobin 11.8, hematocrit 36 with an MCV of 95, platel et count 460,000. Chemistries: By now, his glucose is 172. Sodium 130, potassium 4.1, chloride 94, bicarbonate 22, BUN 12, creatinine 0.95. Initial lactic acid was 4.7 and is now 3.2. Urine toxicol ogy does show some cocaine. ASSESSMENT: Hypoglycemia, now resolved. PLAN: Admit, readjust medications and observe.
[2017-10-14] MEDS: Sodium Chloride 0.9% 1,000 ML IV SCH ×2 (03:30→12:46)
[2017-10-14 05:47] LABS: Band 1 % (5-11); Eosinophils 2 % (0-10); Hemoglobin 10.6 g/dL (14.0-18.0); Lymphocytes 42 % (21-51); MDiff Complete? YES; Mean Corpuscular HGB CONC 32.2 g/dL (32.0-36.0); Mean Corpuscular Volume 96.1 fl (80.0-94.0); Mean Platelet Volume 5.5 fL (7.4-10.4); Monocytes 6 % (0-10); Neutrophil 49 % (42-75); PLT Morphology Comment Appears Adequate; Platelet Count 319 thou/uL (130-400); RBC Distribution Width 12.1 % (11.5-14.5); Red Blood Cell (RBC) Count 3.43 mill/uL (4.70-6.10)
[2017-10-14 05:57] LABS: Anion Gap 10 mmol/L (10-20); BUN (Urea Nitrogen) 10 mg/dL (8.4-25.7); Calc. Creatinine Clearance 68 mL/min (70-130); Calcium 8.6 mg/dL (7.8-10.44); Carbon Dioxide 26 mmol/L (23-31); Chloride 105 mmol/L (98-107); Estimated GFR-MDRD Greater than 90; Glucose 98 mg/dL (80-115); Potassium 4.2 mmol/L (3.5-5.1); Sodium 137 mmol/L (136-145)
--- NOTE | 2017-10-14 08:26 | PDOC.FM ---
- Subjective Subjective: Pt feels well this morning and has no specific complaints. He denies all symptoms in ROS and there were no acute events over night. - Objective Vital Signs & Weight: Vital Signs (12 hours) Temp Pulse Resp BP BP Pulse Ox 10/14/17 07:10 98.6 F 67 18 120/59 L 99 10/14/17 04:11 98.1 F 23 H 118/85 98 10/14/17 04:00 118/85 10/14/17 00:05 128/65 10/14/17 00:00 98.5 F 66 18 128/65 99 Weight Weight 55.157 kg I&O: 10/13/17 10/14/17 10/15/17 06:59 06:59 06:59 Intake Total 4565 Output Total 3550 Balance 1015 Result Diagrams: 10/14/17 04:59 10/14/17 04:59 EKG Reviewed by me: Yes (NSR on tele) Phys Exam - Physical Examination Constitutional: NAD HEENT: PERRLA, moist MMs, oral pharynx no lesions Neck: no nodes, no JVD Respiratory: clear to auscultation bilateral Cardiovascular: RRR, no significant murmur Gastrointestinal: soft, non-tender, no distention Musculoskeletal: no edema Neurological: non-focal Psychiatric: normal affect, A&O x 3 Skin: no rash, normal turgor Dx/Plan (1) Hypoglycemia Code(s): E16.2 - HYPOGLYCEMIA, UNSPECIFIED Status: Resolved (2) Diabetes mellitus Code(s): E11.9 - TYPE 2 DIABETES MELLITUS WITHOUT COMPLICATIONS Status: Chronic Qualifiers: Diabetes mellitus type: type 2 Diabetes mellitus complication status: without complication 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 mellitus termite 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 use: with termite treater helper use Qualified Code(s): E11.9 - Type 2 diabetes mellitus without complications ; 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 Hypoglycemia - Pt had one episode of low glucose yesterday down to 58, he has otherwise been controlled on 15 units of detemir - unclear as to the cause of the initial episode. Pt has been using cocaine and his history is fairly unreliable. - I do not believe that dosing lantus as ordered caused the hypoglycemia 2. DM - pt is controlled on 15 units rather than his normal 25. This may be dt lack of adherence to diet at home. - Continue current management - Follow up outpt 3. HTN - controlled on home meds 4. Substance abuse - counseled on cessation, pt states that he "just uses cocaine as a pick me up. "
[2017-10-14] MEDS: Chlorthalidone 25 MG TAB PO SCH (09:07)
[2017-10-14] MEDS: Amlodipine 10 MG TAB PO SCH (09:07)
[2017-10-14] MEDS: Amoxicillin/Potassium Clav 875 MG TAB PO SCH (09:07)
[2017-10-14] MEDS: Lisinopril 20 MG TAB PO SCH (09:07)
[2017-10-14] MEDS: Insulin Detemir 100 UNITS/ML 15 UNITS in Admixture Fee 1 EACH SC SCH (09:07)
[2017-10-14 10:12] VITALS: BMI 19.0
[2017-10-14 12:12] LABS: Folate,Hemolysate 367.2 ng/mL (Not Estab.); Hematocrit 27.3 % (37.5-51.0); RBC Folate Test Component 1345 ng/mL (>498)
[2017-10-14 12:23] VITALS: BP 111/61; TEMP 98.4
--- NOTE | 2017-10-14 13:25 | ADD-PRG ---
DATE OF SERVICE: 10/14/2017 This is an addendum to the note of Dr. Edi Millan. Mr. Jung is looking and feeling much better. He has not had no further episodes of hypoglycemia. W e have instructed him to reduce his Lantus to 15 units from his usual 25. He is to follow up with Dr Hugo Burgos for further adjustment of his Lantus insulin.
--- NOTE | 2017-10-15 00:33 | DIS-2 ---
DATE OF ADMISSION: 10/13/2017. DATE OF DISCHARGE: 10/14/2017. ADMITTING ATTENDING: Saud Ryan MD DISCHARGE ATTENDING: Thomas Gates MD CONSULTATIONS: None. PROCEDURES: None. PRIMARY DIAGNOSIS: Hypoglycemia. SECONDARY DIAGNOSES: Lactic acidosis, hypertension, and diabetes type 2. DISCHARGE MEDICATIONS: Norvasc 10 mg p.o. daily, Augmentin p.o. b.i.d. for 2 weeks, Aspirin 81 mg da angela, chlorthalidone 25 mg daily, Lantus 15 units subcutaneously in a.m., lisinopril 40 mg daily, met formin 1000 mg p.o. b.i.d., Glucagon 1 mg IM p.r.n. hypoglycemia. DISCONTINUED MEDICATIONS: Lantus 25 units subcutaneously q.a.m. HISTORY OF PRESENT ILLNESS: The patient was admitted after being found down at home with apparent gl ucose in the 30s. In the emergency room, he was also found to have a rectal temperature of 91 degree s Fahrenheit. Sepsis workup was initiated at that time and the patient was put empirically on antibi otics. Additionally, at the time of admission, the patient's urine drug screen was positive for coca ine. While admitted, the patient's Lantus was moved down from 25 to 15 in an effort to prevent furth er episodes of hypoglycemia even though this medication is very unlikely to cause hypoglycemia. Duri ng the hospitalization, it was generally unclear as to what specifically caused this episode as there is no clear inciting event and per the patient, medications have been taken as prescribed nor had he skipped any meals and had maintained his recommended diabetic diet. While admitted, the patient's g lucose was generally stable and within normal limits at 15 units. The patient did not need additiona l sliding scale, short-acting insulin. The patient was discharged stable with instructions on how to and when to use glucagon in the event of an additional hypoglycemic event with instructions to follo w up within a week with his PCP to discuss further medication management. DISPOSITION: Stable. DISCHARGE INSTRUCTIONS: 1. Location: Home. 2. Diet: Low carbohydrates. 3. Activity: Ad-sascha. 4. Followup: Within 1 week with PCP, Dr. Arron Burgos.
[2017-10-18 11:13] LABS: A/G Ratio 0.6 (0.7-1.7); Albumin 2.4 g/dL (2.9-4.4); Alpha 1 0.2 g/dL (0.0-0.4); Alpha 2 0.8 g/dL (0.4-1.0); Beta 1.2 g/dL (0.7-1.3); Globulin, Total 4.2 g/dL (2.2-3.9); M-Spike Not Observed g/dL (Not Observed); Protein Electrophoresis Intrp Note: (.)
== END 2017-10-14 13:08 | disposition home or self-care (01) | DRG 638 ==
LOC: ERS 00:19 → 2NO 07:14
PROVIDERS: ADMIT Emergency Medicine; ATTEND Emergency Medicine
DX: E11.649 Type 2 diabetes mellitus with hypoglycemia without coma (principal); E87.2 Acidosis; Z79.4 Long term (current) use of insulin; I10 Essential (primary) hypertension; E78.5 Hyperlipidemia, unspecified; F17.220 Nicotine dependence, chewing tobacco, uncomplicated; F14.10 Cocaine abuse, uncomplicated; D64.9 Anemia, unspecified
CPT/HCPCS: 36415; 36416; 71010; 80048; 80053; 80306; 81003; 82607; 82747; 83605; 84165; 85025; 87040; 90471; 90682; 96365; 96367; G0008; J1815; J2543; J3370; J7050; Q2036

== ENCOUNTER 2020-02-24 13:54 | Observation (INO) | payer MEDICARE ==
[2020-02-24 14:41] LABS: #Basophils 0.1 thou/uL (0.0-0.2); #Eosinphils 0.2 thou/uL (0.0-0.7); #Lymphocytes 0.8 thou/uL (1.20-3.40); #Monocytes 0.6 thou/uL (0.11-0.59); #Neutrophils 3.4 thou/uL (1.40-6.50); %Basophils 2.5 % (0.0-1.0); %Lymphocytes 15.6 % (21.0-51.0); %Neutrophils 67.9 % (42.0-75.0); Hemoglobin 14.2 g/dL (14.0-18.0); Mean Corpuscular HGB CONC 32.9 g/dL (32.0-36.0); Mean Corpuscular Hemoglobin 31.2 pg (27.0-31.0); Mean Corpuscular Volume 94.9 fL (78.0-98.0); Mean Platelet Volume 6.7 fL (7.4-10.4); Platelet Count 197 thou/uL (130-400); RBC Distribution Width 11.5 % (11.5-14.5); Red Blood Cell (RBC) Count 4.54 mill/uL (4.70-6.10)
[2020-02-24 14:45] LABS: Bacteria/HPF None Seen HPF (None Seen); Bilirubin Negative (Negative); Blood, Urine Trace (Negative); Clarity Clear (Clear); Glucose, Urine (Dipstick) Greater than 1000 mg/dL (Negative); Leukocyte Negative Leu/uL (Negative); Nitrite Negative (Negative); Protein, Urine (Dipstick) 50 mg/dL (Neg-Trace); RBC/HPF 0-3 HPF (0-3); Squamous Epithelial None Seen HPF (0-3); Urobilinogen Normal mg/dL (Less than 2); WBC/HPF 0-3 HPF (0-3)
[2020-02-24 14:54] LABS: Cocaine Metabolite Screen Detected (NotDetected); Medtox Reader # READER 1; THC/Cannabinoid Screen Not Detected (NotDetected)
[2020-02-24 14:55] LABS: Amphetamine Not Detected (NotDetected); Barbiturates Screen Not Detected (NotDetected); Benzodiazepine Screen Not Detected (NotDetected); Medtox Control Line Valid? VALID (VALID); Methadone Not Detected (NotDetected); Methamphetamine Not Detected (NotDetected); Opiate Screen Not Detected (NotDetected); Oxycodone Screen Not Detected (NotDetected); Phencyclidine (PCP) Not Detected (NotDetected); Tricyclic Screen Not Detected (NotDetected)
[2020-02-24 15:04] LABS: ALT (SGPT) 29 U/L (8-55); AST (SGOT) 43 U/L (5-34); Acetaminophen Less than 6.0 mcg/mL (10.0-30.0); Albumin 4.1 g/dL (3.4-4.8); Alcohol Less than 10 mg/dL (Less than 10); Alkaline Phosphatase 104 U/L (40-110); Anion Gap 17 mmol/L (10-20); BUN (Urea Nitrogen) 21 mg/dL (8.4-25.7); Bilirubin, Total 0.3 mg/dL (0.2-1.2); CK (CPK) 339 U/L (30-200); Calc. Creatinine Clearance 0 mL/min (70-130); Calcium 9.5 mg/dL (7.8-10.44); Carbon Dioxide 25 mmol/L (23-31); Chloride 101 mmol/L (98-107); Estimated GFR-MDRD 50; Globulin 4.2 g/dL (2.4-3.5); Glucose 230 mg/dL (80-115); Potassium 4.6 mmol/L (3.5-5.1); Protein, Total 8.3 g/dL (5.8-8.1); Salicylate Less than 8.0 mg/dL (15.0-30.0); Sodium 138 mmol/L (136-145)
--- NOTE | 2020-02-24 15:24 | RAD ---
EXAM: Portable chest PROVIDED CLINICAL HISTORY: Syncope COMPARISON: 10/13/2017 FINDINGS: Cardiac and mediastinal silhouette is within normal limits. No focal consolidation or pneumothorax ev ident. Stable blunting of the right costophrenic angle. IMPRESSION: No evidence for an acute cardiopulmonary process.
[2020-02-24] MEDS ORDERED: Nitroglycerin 2% Ointment 1 INCH/1 GM Packet ONE (15:31)
--- NOTE | 2020-02-24 15:49 | CT ---
Exam: CT brain PROVIDED CLINICAL HISTORY: Syncope COMPARISON: None FINDINGS: The ventricular system is normal in size and morphology. No evidence for intracranial hemorrhage or mass effect. The extracranial soft tissues and osseous structures demonstrate no evidence for an acute abnormality. IMPRESSION: No evidence for intracranial hemorrhage or mass effect.
--- NOTE | 2020-02-24 15:59 | PDOC.FPRHP ---
- History of Present Illness Chief Complaint: "fell asleep in garage" History of Present Illness: Mr. Jung is a 69yo M who presented to the ED via EMS after being found down in his garage by friends. He states that he laid down for a nap because he was tired. When EMS arrived, his BP was 264 systolic. He was given 0.4 of nitroglycerin x 2 and brought to the ED. He denies any headache, vision changes , SOB, chest pain, weakness, palpitations. Currently, he has no complaints. On exam in the ER, he states he feels back to normal. He states he does not take any medications and does not regularly see a doctor. ED Course: 1 inch nitro transdermal paste - Allergies/Adverse Reactions Allergies Allergy/AdvReac Type Severity Reaction Status Date / Time No Known Allergies Allergy Unverified 09/22/17 10:27 - Home Medications Medication Instructions Recorded Confirmed Type Amlodipine [Norvasc] 10 mg PO DAILY #30 tab 09/30/17 02/24/20 Rx Aspirin Chewable [Aspirin Chewable 81 mg PO DAILY #30 tab 09/30/17 02/24/20 Rx Tablet] Chlorthalidone [Hygroton] 25 mg PO DAILY #30 tab 09/30/17 02/24/20 Rx Lisinopril 40 mg PO HS #30 tablet 09/30/17 02/24/20 Rx metFORMIN HCl [Metformin HCl] 1,000 mg PO BID #60 tablet 09/30/17 02/24/20 Rx Glucagon 1 mg IM PRN PRN #1 vial 10/14/17 02/24/20 Rx Insulin Glargine,Hum.Rec.Anlog 15 unit SQ QAM #3 pen 10/14/17 02/24/20 Rx [Lantus Solostar] - History PMHx: DM II HTN HLD PSHx: None FHx: None Social: Quit tobacco in 2001, has 40 pack year history. Currently dips tobacco. Drinks 3-4 beers about every other day. Admits to cocaine use. - Review of Systems General: denies: fever/chills, weight/appetite/sleep changes, night sweats, fatigue Eyes: denies: vision changes ENT: denies: nasal congestion, rhinorrhea Respiratory: denies: cough, congestion, shortness of breath, exercise intolerance Cardiovascular: denies: chest pain, palpitation, edema, paroxysmal nocturnal dyspnea Gastrointestinal: denies: nausea, vomiting, diarrhea, constipation, abdominal pain Skin: denies: rashes Musculoskeletal: denies: pain, swelling Neurological: reports: syncope. denies: numbness, seizure, weakness - Vital signs BP: 163/101, Pulse: 77, Resp: 14, Pain: 0, O2 sat: 97 on (Room Air), Time: 2019 15:35. Weight 62kg - Physical Exam Constitutional: NAD, awake, alert and oriented, well developed HEENT: normocephalic and atraumatic, PERRLA, EOMI, grossly normal vision, grossly normal hearing, MMM Neck: supple, FROM, trachea midline Chest: no-tender to palpation Heart: RRR, normal S1/S2, no murmurs/rubs/gallops, pulses present Lungs: CTAB, no respiratory distress, good air movement, no rales/rhonchi, no wheezing, no retractions Abdomen: soft, non-tender, bowel sounds present Musculoskeletal: normal structure, normal tone Neurological: no focal deficit Skin: no rash/lesions, good turgor, capillary refill <2 seconds Heme/Lymphatic: no unusual bruising or bleeding Psychiatric: normal mood and affect FMR H&P: Results - Labs Result Diagrams: 02/24/20 14:31 02/24/20 14:31 Lab results: WBC 5.0 thou/uL (4.8-10.8) 02/24/20 14:31 Hgb 14.2 g/dL (14.0-18.0) 02/24/20 14:31 Hct 43.1 % (42.0-52.0) 02/24/20 14:31 MCV 94.9 fL (78.0-98.0) 02/24/20 14:31 Plt Count 197 thou/uL (130-400) 02/24/20 14:31 Neutrophils % 67.9 % (42.0-75.0) 02/24/20 14:31 Sodium 138 mmol/L (136-145) 02/24/20 14:31 Potassium 4.6 mmol/L (3.5-5.1) 02/24/20 14:31 Chloride 101 mmol/L (98-107) 02/24/20 14:31 Carbon Dioxide 25 mmol/L (23-31) 02/24/20 14:31 BUN 21 mg/dL (8.4-25.7) 02/24/20 14:31 Creatinine 1.66 mg/dL (0.7-1.3) H 02/24/20 14:31 Glucose 230 mg/dL (80-115) H 02/24/20 14:31 Calcium 9.5 mg/dL (7.8-10.44) 02/24/20 14:31 Total Bilirubin 0.3 mg/dL (0.2-1.2) 02/24/20 14:31 AST 43 U/L (5-34) H 02/24/20 14:31 ALT 29 U/L (8-55) 02/24/20 14:31 Alkaline Phosphatase 104 U/L (40-110) 02/24/20 14:31 Creatine Kinase 339 U/L (30-200) H 02/24/20 14:31 Serum Total Protein 8.3 g/dL (5.8-8.1) H 02/24/20 14:31 Albumin 4.1 g/dL (3.4-4.8) 02/24/20 14:31 Urine Ketones Negative mg/dL (Negative) 02/24/20 14:30 Urine Blood Trace (Negative) A 02/24/20 14:30 Urine Nitrite Negative (Negative) 02/24/20 14:30 Ur Leukocyte Esterase Negative Whit/uL (Negative) 02/24/20 14:30 Urine RBC 0-3 HPF (0-3) 02/24/20 14:30 Urine WBC 0-3 HPF (0-3) 02/24/20 14:30 Ur Squamous Epith Cells None Seen HPF (0-3) 02/24/20 14:30 Urine Bacteria None Seen HPF (None Seen) 02/24/20 14:30 - Radiology Interpretation CT scan - head Status: report reviewed by me (IMPRESSION: No evidence for intracranial hemorrhage or mass effect.) Chest x-ray Status: report reviewed by me (IMPRESSION: No evidence for intracranial hemorrhage or mass effect.) FMR H&P: A/P - Problem List (1) Hypertensive urgency Current Visit: Yes Status: Acute Code(s): I16.0 - HYPERTENSIVE URGENCY (2) Hepatitis C virus infection Current Visit: No Status: Acute Code(s): B19.20 - UNSPECIFIED VIRAL HEPATITIS C WITHOUT HEPATIC COMA Qualifiers: Viral hepatitis chronicity: chronic Hepatic coma status: without hepatic coma Qualified Code(s): B18.2 - Chronic viral hepatitis C (3) Diabetes mellitus Current Visit: No Status: Chronic Code(s): E11.9 - TYPE 2 DIABETES MELLITUS WITHOUT COMPLICATIONS Qualifiers: Diabetes mellitus type: type 2 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 -h/o HTN at last hospitalization, was discharged on Amlodipine, Chlorthalidone, and Lisinopril. -Will allow permissive HTN between 160-180 overnight. SBP>180, give Labetolol prn -Will restart Amlodipine 5mg and Lisinopril 10mg in the morning and monitor BPs. DOMITILA vs CKD -Cr 1.66. Will repeat in the morning and monitor. -Encourage oral hydration Cocaine abuse -Noted on UDS. -Recommend cessation in light of hypertension. Alcohol abuse -Drinks 3-[address] on ASE protocol -Monitor for signs and symptoms of withdrawal. Diabetes Mellitus II -A1c pending in the morning. -SSI and hypoglycemia protocol in place. H/o Hep C infection -Unclear if he had treatment or not. Will investigate further. Dispo: admit to tele, obs DVT ppx: none Code: FULL PCP: CC, Does not see doctor Case discussed with Dr. Jackson FMJuan C H&P: Upper Level - Plan Date/Time: 02/24/20 0356 I, Tasha Rosales MD, have evaluated this patient and agree with findings/plan as outlined by manufacturing engineering intern resident. Pertinent changes/additions are listed here. HPI: This is a 69yo AA M who presented to the ER via EMS after being found down in his garage and unresponsive by friends. The patient states that he remembers the whole thing and that he was tired and decided to take a nap. He denies any chest pain, palpitations, NVD, vision changes, abd pain. He states he did not bite his tongue or lose his bowels. He reports this has never happened to him before. He states that he does not use drugs, but has been around it "in the air." He states he drinks 3-4 beers/day. He reports a hx of DM and HTN, but has not been taking any medication for this nor following up with any PCP. Of note, patient is a poor historian. See manufacturing engineering intern note for full histories. PE: General: NAD, well developed HEENT: NC/AT, EOMI, no bite cardenas noted, MMM, trachea midline Cardio: RRR, no murmurs, rubs or gallops Resp: CTAB, no rales, rhonchi, wheezes Abd: soft, non distended MSK: FROM, no swelling noted Neuro: CN II-XII intact, normal sensation, normal strength A&P: Syncope Patient found down by friends, hx unclear as patient is a poor historian. Etiology unknown at this time, UDS positive for Cocaine. CT brain neg for bleed. - Admit to tele, obs - Orthostatics pending - Initialy Trop 0.03 - will trend - CK mildly elevated at 339, will give mIVF - Unlikely cardiac etiology, but monitoring on tele HTN Urgency Patient initially with BP 260/140s per EMS and given SL nitro with improvement in pressure. - Will continue to monitor here - PRNs available; Will allow permissive HTN between 160-180 overnight. SBP>180, give Labetolol prn - Previously discharged on multiple antihypertensives. Will start amlodipine 5mg daily and lisinopril 10mg daily. Can adjust as need. DOMITILA Cr elevated to 1.66 - Will give mIVF, likely can PO hydrate starting in the AM DMII - A1c pending, SS, DM education HTN - see above Hx of drug and alcohol use - ASE protocol - UDS pos for cocaine - Will encourage cessation Dispo: admit to tele, obs DVT ppx: none PCP: none Code: FULL Case discussed with Dr. Jackson
[2020-02-24] MEDS ORDERED: HumaLOG 300 UNITS/3 ML VIAL SC PRN (16:08)
[2020-02-24] MEDS ORDERED: Ondansetron PF 4 MG/2 ML Vial IVP PRN (16:08)
[2020-02-24] MEDS ORDERED: Calcium Carbonate 500 MG ChewTAB PO PRN (16:08)
[2020-02-24] MEDS ORDERED: Dextrose 50% Abboject 50 ML SYRINGE SLOW IVP PRN (16:08)
[2020-02-24] MEDS ORDERED: Dextrose 5% in Water 1,000 ML IV PRN (16:08)
[2020-02-24] MEDS ORDERED: Ondansetron ODT 4 MG TAB PO PRN (16:08)
[2020-02-24] MEDS ORDERED: Labetalol HCl 100 MG/20 ML VIAL SLOW IVP PRN (16:11)
[2020-02-24] MEDS ORDERED: Diazepam 5 MG TAB PO PRN (17:02)
[2020-02-24 17:08] LABS: CKMB 8.4 ng/mL (0-6.6)
[2020-02-24] MEDS ORDERED: Thiamine HCl 200 MG/2 ML VIAL IM SCH (17:15)
[2020-02-24 17:36] LABS: Magnesium 1.9 mg/dL (1.6-2.6); Phosphorus 5.2 mg/dL (2.3-4.7)
[2020-02-24 18:15] VITALS: BMI 20.2
[2020-02-24 18:35] LABS: Troponin I 0.019 ng/mL (< 0.028)
[2020-02-24] MEDS: Lactated Ringer's 1,000 ML IV SCH (18:59)
[2020-02-24 20:40] LABS: Troponin I 0.018 ng/mL (< 0.028)
[2020-02-25] MEDS: Lactated Ringer's 1,000 ML IV SCH ×2 (00:35→08:37)
[2020-02-25] MEDS ORDERED: Diazepam 5 MG TAB PO PRN (04:00)
[2020-02-25 05:46] LABS: Anion Gap 11 mmol/L (10-20); BUN (Urea Nitrogen) 22 mg/dL (8.4-25.7); Calc. Creatinine Clearance 37 mL/min (70-130); Calcium 8.5 mg/dL (7.8-10.44); Carbon Dioxide 26 mmol/L (23-31); Cardiac Risk 2.5 (Less than 4.5); Chloride 101 mmol/L (98-107); Cholesterol 139 mg/dl (< 200 Desired); Estimated GFR-MDRD 53; Glucose 273 mg/dL (80-115); HDL Cholesterol 55 mg/dL (>60 Neg Risk); LDL Cholesterol, Calculated 69 mg/dL; Potassium 3.9 mmol/L (3.5-5.1); Sodium 134 mmol/L (136-145); Triglycerides 75 mg/dL (Less than 150)
--- NOTE | 2020-02-25 06:56 | PDOC.FM ---
- Subjective Subjective: pt resting comfortably in bed, denies any chest pain or headache. - Objective Vital Signs & Weight: Vital Signs (12 hours) Temp Pulse Resp BP Pulse Ox 02/25/20 03:17 98.3 F 75 16 169/78 H 96 02/24/20 19:38 98.4 F 77 16 139/71 96 Weight Weight 58.786 kg I&O: 02/23/20 02/24/20 02/25/20 06:59 06:59 06:59 Intake Total 2220 Output Total 800 Balance 1420 Result Diagrams: 02/24/20 14:31 02/25/20 04:29 Phys Exam - Physical Examination Constitutional: NAD HEENT: moist MMs Neck: no JVD Respiratory: clear to auscultation bilateral Cardiovascular: RRR, no significant murmur Gastrointestinal: no distention Musculoskeletal: pulses present Neurological: moves all 4 limbs Psychiatric: normal affect Skin: no rash Dx/Plan (1) Hypertensive urgency Code(s): I16.0 - HYPERTENSIVE URGENCY Status: Acute (2) Hepatitis C virus infection Code(s): B19.20 - UNSPECIFIED VIRAL HEPATITIS C WITHOUT HEPATIC COMA Status: Acute Qualifiers: Viral hepatitis chronicity: chronic Hepatic coma status: without hepatic coma Qualified Code(s): B18.2 - Chronic viral hepatitis C (3) Diabetes mellitus Code(s): E11.9 - TYPE 2 DIABETES MELLITUS WITHOUT COMPLICATIONS Status: Chronic Qualifiers: Diabetes mellitus type: type 2 Diabetes mellitus group home insulin use: with group home use Diabetes mellitus complication status: without complication Qualified Code(s): E11.9 - Type 2 diabetes mellitus without complications; 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 -restart Amlodipine 5mg and Lisinopril 10mg. increase for greater control DOMITILA vs CKD -Cr 1.66 initially, improved. -LR @ 125 Cocaine abuse -Noted on UDS. -Recommend cessation in light of hypertension. Alcohol abuse -Drinks 3-4 beers daily. ASE protocol -Monitor for signs and symptoms of withdrawal. Diabetes Mellitus II -A1c pending in the morning. -SSI and hypoglycemia protocol in place. H/o Hep C infection -Unclear if he had treatment or not. Will investigate further. DVT ppx: none Code: FULL PCP: CC, Does not see doctor dispo: obtain greater BP control, IVF rescus., possible DC tomorrow Addendum - Attending - Attending Attestation Date/Time: 02/25/20 1344 I personally evaluated the patient and discussed the management with Dr. Awad. I agree with the History, Examination, Assessment and Plan documented above with any addition or exceptions noted below. Patient stable. Doing well. Rechecking labs and monitoring BP through the day but hopeful discharge since he had his symptoms after using cocaine.
[2020-02-25] MEDS ORDERED: Folic Acid 1 MG TAB PO SCH (09:00)
[2020-02-25] MEDS ORDERED: Magnesium Oxide 400 MG TAB PO SCH (09:00)
[2020-02-25] MEDS ORDERED: Multivitamin W/ Minerals 1 TAB PO SCH (09:00)
[2020-02-25] MEDS ORDERED: Thiamine 100 MG TAB PO SCH (09:00)
[2020-02-25] MEDS ORDERED: Amlodipine 5 MG TAB PO SCH ×2 (09:00→12:15)
[2020-02-25] MEDS ORDERED: Enoxaparin Sodium 40 MG/0.4 ML SYRINGE SC SCH (09:00)
[2020-02-25] MEDS ORDERED: Lisinopril 10 MG TAB PO SCH (09:00)
[2020-02-25 11:36] VITALS: TEMP 97.6
[2020-02-25 14:37] LABS: Anion Gap 12 mmol/L (10-20); BUN (Urea Nitrogen) 17 mg/dL (8.4-25.7); Calc. Creatinine Clearance 45 mL/min (70-130); Calcium 8.8 mg/dL (7.8-10.44); Carbon Dioxide 26 mmol/L (23-31); Chloride 100 mmol/L (98-107); Estimated GFR-MDRD 66; Glucose 268 mg/dL (80-115); Potassium 4.4 mmol/L (3.5-5.1); Sodium 134 mmol/L (136-145)
[2020-02-25 14:44] VITALS: BP 137/65
[2020-02-26] MEDS ORDERED: Amlodipine 10 MG TAB PO SCH (09:00)
--- NOTE | 2020-02-26 11:22 | DIS ---
DATE OF ADMISSION: 02/24/2020 DATE OF DISCHARGE: 02/25/2020 DISCHARGE ATTENDING: Dr. Bobby Cohen. IMAGING STUDIES: CT scan of the brain shows no evidence for intracranial hemorrhage or mass effect. Chest x-ray, no acute cardiopulmonary process. CONSULTS: None. DISCHARGE MEDICATIONS: 1. Amlodipine 10 mg p.o. daily. 2. Aspirin 81 mg p.o. daily. 3. Metformin 1000 mg p.o. b.i.d. 4. KCl daily. 5. Magnesium oxide 400 mg p.o. daily. 6. Theragran one tablet p.o. daily. 7. Thiamine 100 mg p.o. daily. DISCONTINUED MEDICATIONS: 1. Chlorthalidone 25 mg p.o. daily. 2. Lantus 15 units subcu q.a.m. DISCHARGE DIAGNOSES: 1. Hypertensive urgency. 2. Cocaine abuse. 3. Acute kidney injury. SECONDARY DIAGNOSES: 1. Alcohol abuse. 2. Diabetes mellitus, type 2. 3. History of hepatitis C. HISTORY OF PRESENT ILLNESS AND HOSPITAL COURSE: Mr. Jung is a 69-year-old man with past medical history significant for hypertension, as reported that earlier in the day, he was found down in the garage by his friends. BP when took up EMS by was 264 systolic, he was given nitroglycerin at that time and brought to the emergency department. On arrival to the ER, he did not have any further complaints. UDS was positive for cocaine, CT scan was negative. Blood pressure medicines were restarted as the patient had not been taking it all at home. His blood pressure did improve. The patient's DOMITILA improved as well. He is tolerating p.o. and feeling like he could go home. Discharged on blood pressure medicines as prescribed and instructed to not use cocaine anymore as this is contributing to his hypertensive episodes. DISCHARGE INSTRUCTIONS: 1. Location: Home. 2. Diet: Diabetic. 3. Activity: As tolerated. FOLLOWUP: Follow up with PCP in the next 3 to 7 days. Job ID: [id number] MTDD
--- NOTE | 2020-03-01 13:28 | EKG ---
Test Reason : HTN Blood Pressure : / mmHG Vent. Rate : 086 BPM Atrial Rate : 086 BPM P-R Int : 144 ms QRS Dur : 088 ms QT Int : 412 ms P-R-T Axes : 068 062 075 degrees QTc Int : 493 ms Normal sinus rhythm Possible Left atrial enlargement Left ventricular hypertrophy with repolarization changes [place] Prolonged QT Abnormal ECG Confirmed by BEULAH STANLEY DO ([id number]), assistant film editor YOVANI REYES ([id number]) on 03/01/2020 1:28:12 PM Referred By: Confirmed By:BEULAH STANLEY DO
== END 2020-02-25 16:10 | disposition home or self-care (01) ==
LOC: ERS 13:54 → 2NO 16:11
PROVIDERS: ADMIT Family Medicine; ATTEND Family Medicine
DX: I16.0 Hypertensive urgency (principal); F14.10 Cocaine abuse, uncomplicated; F10.10 Alcohol abuse, uncomplicated; E11.9 Type 2 diabetes mellitus without complications; N17.9 Acute kidney failure, unspecified; I10 Essential (primary) hypertension; E78.5 Hyperlipidemia, unspecified; F17.220 Nicotine dependence, chewing tobacco, uncomplicated; Z79.4 Long term (current) use of insulin; Z79.82 Long term (current) use of aspirin; Z79.899 Other long term (current) drug therapy
CPT/HCPCS: 70450; 71045; 80048 ×2; 80061; 80306; 80307; 82550; 82553; 82962 ×2; 83036; 83735; 84100; 84484 ×2; 93005; 96372; 97139; 99285; G0378 ×3; 36415; 36416; 80053; 81003; 81015; 84443; 85025; J3411; J3475; J3490

== ENCOUNTER 2021-10-19 12:28 | Emergency (ER) | payer MEDICARE, OTHER | END 2021-10-19 14:05 | disposition left against medical advice (07) | LOC: ERS 12:28 | DX: R55 Syncope and collapse (principal); R94.31 Abnormal electrocardiogram [ECG] [EKG] | CPT/HCPCS: 71045; 93005 ==

== ENCOUNTER 2022-12-30 21:04 | Emergency (ER) | payer MEDICARE ==
[2022-12-30 21:37] LABS: #Eosinphils 0.1 thou/uL (0.0-0.7); #Lymphocytes 0.7 thou/uL (1.20-3.40); #Monocytes 0.6 thou/uL (0.11-0.59); #Neutrophils 6.4 thou/uL (1.40-6.50); %Basophils 0.1 % (0.0-1.0); %Eosinophils 0.9 % (0.0-10.0); %Lymphocytes 9.2 % (21.0-51.0); %Monocytes 8.1 % (0.0-10.0); %Neutrophils 81.7 % (42.0-75.0); Hemoglobin 12.7 g/dL (14.0-18.0); Mean Corpuscular HGB CONC 32.8 g/dL (32.0-36.0); Mean Corpuscular Hemoglobin 31.3 pg (27.0-31.0); Mean Corpuscular Volume 95.4 fl (78.0-98.0); Mean Platelet Volume 6.7 fL (7.4-10.4); Platelet Count 189 10x3/uL (130-400); Red Blood Cell (RBC) Count 4.06 mill/uL (4.70-6.10); White Blood Cell (WBC) Count 7.8 10x3/uL (4.8-10.8)
[2022-12-30 21:52] LABS: ALT (SGPT) 38 U/L (8-55); AST (SGOT) 45 U/L (5-34); Albumin 3.8 g/dL (3.4-4.8); Alcohol 43 mg/dL (Less than 10); Alkaline Phosphatase 75 U/L (40-110); Anion Gap 17 mmol/L (10-20); BUN (Urea Nitrogen) 22 mg/dL (8.4-25.7); Bilirubin, Total 0.5 mg/dL (0.2-1.2); Calc. Creatinine Clearance 0 mL/min (70-130); Calcium 8.8 mg/dL (7.8-10.44); Carbon Dioxide 20 mmol/L (23-31); Chloride 101 mmol/L (98-107); Estimated GFR 43; Globulin 3.9 g/dL (2.4-3.5); Glucose 211 mg/dL (83-110); Potassium 3.8 mmol/L (3.5-5.1); Protein, Total 7.7 g/dL (5.8-8.1); Sodium 134 mmol/L (136-145)
== END 2022-12-30 22:25 | disposition home or self-care (01) ==
LOC: ERS 21:04
DX: R55 Syncope and collapse (principal); F14.10 Cocaine abuse, uncomplicated; I10 Essential (primary) hypertension; E11.9 Type 2 diabetes mellitus without complications; E78.5 Hyperlipidemia, unspecified
CPT/HCPCS: 36415; 71045; 80053; 80307; 83880; 84484; 85025; 93005